=== PATIENT | female | born 1950 | race Caucasian/White ===

== ENCOUNTER 2018-06-22 08:29 | Emergency (ER) | payer MEDICARE, MEDICAID ==
[~2018-06-22] VITALS: Ht 185.4 cm; Wt 88.6 kg
[~2018-06-22 08:29] MED LIST: ALAVERT10 MG OR; AMLODIPINE5 MG PO; LISINOPRIL10 MG OR; LISINOPRIL20 MG PO; LORATADINE10 M1 PO; METOPROL TAR25 MG PO; MOTRIN800 MG PO
[2018-06-22] MEDS ORDERED: IBUPROFEN600 MG PO (09:25)
[2018-06-22 09:42] VITALS: BP 127/86
== END 2018-06-22 09:47 | disposition home or self-care (01) ==
LOC: ED 08:29
DX: S63.91XA Sprain of unspecified part of right wrist and hand, initial encounter (principal); W01.0XXA Fall on same level from slipping, tripping and stumbling without subsequent striking against object, initial encounter; Y93.01 Activity, walking, marching and hiking; Y92.009 Unspecified place in unspecified non-institutional (private) residence as the place of occurrence of the external cause

== ENCOUNTER 2019-01-14 08:22 | Emergency (ER) | payer MEDICARE, MEDICAID ==
[~2019-01-14] VITALS: Ht 185.4 cm; Wt 100.0 kg
[~2019-01-14 08:22] MED LIST changes: +IBUPROFEN600 MG PO
[2019-01-14 11:00] VITALS: BP 125/74
== END 2019-01-14 11:00 | disposition home or self-care (01) ==
LOC: ED 08:22
DX: S80.02XA Contusion of left knee, initial encounter (principal); S80.01XA Contusion of right knee, initial encounter; M25.562 Pain in left knee; M25.561 Pain in right knee; S80.212A Abrasion, left knee, initial encounter; S80.211A Abrasion, right knee, initial encounter; W18.30XA Fall on same level, unspecified, initial encounter; Y92.009 Unspecified place in unspecified non-institutional (private) residence as the place of occurrence of the external cause

== ENCOUNTER 2019-01-24 08:21 | Emergency (ER) | payer MEDICARE, MEDICAID ==
[~2019-01-24] VITALS: Ht 185.4 cm; Wt 86.0 kg
[~2019-01-24 08:21] MED LIST changes: +BACTRIM DS1 TAB PO; +CEPHALEXIN500 M1 PO
[2019-01-24 08:48] VITALS: BP 109/50
== END 2019-01-24 08:59 | disposition home or self-care (01) ==
LOC: ED 08:21
DX: S91.105D Unspecified open wound of left lesser toe(s) without damage to nail, subsequent encounter (principal)

== ENCOUNTER 2019-08-03 09:35 | Observation (INO) | payer MEDICARE, MEDICAID ==
[~2019-08-03] VITALS: Ht 182.9 cm; Wt 102.6 kg
[2019-08-03 11:08] LABS: HEMATOCRIT 42.2 % (37.0-47.0); HEMOGLOBIN 13.5 g/dl (12.0-16.0); IMMATURE GRANULOCYTES 0.5 % (0.0-5.0); MEAN CELL VOLUME 84.9 fL CALC (80.0-100.0); MEAN CORPUSCULAR HGB 27.2 pG CALC (26.0-32.0); NEUT# 9.9 thou/uL (2.00-7.15); RED BLOOD COUNT 4.97 mill/uL (4.20-5.60); RED CELL DISTRI WIDTH 13.7 % (11.5-15.5)
[2019-08-03 11:37] LABS: ALBUMIN 3.9 g/dL (3.2-5.0); BILIRUBIN, TOTAL 0.3 mg/dL (0.0-1.4); CREATININE 1.2 mg/dL (0.5-1.0); TOTAL PROTEIN 7.2 g/dL (6.3-8.2)
[2019-08-03 11:39] LABS: POTASSIUM 5.2 mmol/l (3.5-5.1)
[2019-08-03 12:05] LABS: URINE BILIRUBIN - DIPSTICK NEGATIVE (NEGATIVE); URINE BLOOD DIPSTICK NEGATIVE (NEGATIVE); URINE COLOR YELLOW; URINE GLUCOSE - DIPSTICK NEGATIVE (NEGATIVE); URINE KETONE NEGATIVE (NEGATIVE); URINE LEUK ESTERASE NEGATIVE (NEGATIVE); URINE NITRITE - DIPSTICK NEGATIVE (Negative); URINE PH 5.5 (4.5-8.0); URINE PROTEIN - DIPSTICK NEGATIVE (NEG-TRACE); URINE SPECIFIC GRAVITY 1.025; URINE UROBILINOGEN - DIPSTICK 0.2 E.U./dL (0.2)
[2019-08-03] MEDS ORDERED: NEOMYCIN500 MG PO (12:59)
[2019-08-03] MEDS ORDERED: CELEBREX200 M1 PO (12:59)
[2019-08-03 14:10] VITALS: BP 129/79
[2019-08-03 16:16] VITALS: BP 117/60
[2019-08-03 19:02] VITALS: BP 147/63
[2019-08-03 23:46] VITALS: BP 133/76
[2019-08-04 04:21] VITALS: BP 155/60
[2019-08-04 05:19] LABS: HEMATOCRIT 40.1 % (37.0-47.0); HEMOGLOBIN 12.7 g/dl (12.0-16.0); IMMATURE GRANULOCYTES 0.6 % (0.0-5.0); MEAN CELL VOLUME 84.8 fL CALC (80.0-100.0); MEAN CORPUSCULAR HGB 26.8 pG CALC (26.0-32.0); MEAN CORPUSCULAR HGB CONC 31.7 g/L CALC (32.0-36.0); NEUT# 5.91 thou/uL (2.00-7.15); RED BLOOD COUNT 4.73 mill/uL (4.20-5.60); RED CELL DISTRI WIDTH 13.8 % (11.5-15.5)
[2019-08-04 05:34] LABS: ANION GAP 13 (6-22 (CALC)); BUN 20 mg/dL (8-23); BUN/CREATININE RATIO 24 (12-20 (CALC)); CARBON DIOXIDE 21 mmol/l (22-30); CHLORIDE 109 mmol/l (95-108); CREATININE 0.8 mg/dL (0.5-1.0); GFR > 60 ML/MIN (>=60 (CALC)); GFR FOR AFR.AMER. > 60 ML/MIN (>=60 (CALC)); POTASSIUM 4.5 mmol/l (3.5-5.1); SODIUM 138 mmol/l (137-146)
[2019-08-04 08:43] VITALS: BP 138/75
[2019-08-04 11:52] VITALS: BP 126/68
== END 2019-08-04 15:42 | disposition home health service (06) ==
LOC: ED 09:35 → ED-I 12:06 → ED 12:18 → MS2 12:19
PROVIDERS: Nurse Practitioner Family; ADMIT Internal Medicine; ATTEND Internal Medicine
DX: E86.0 Dehydration (principal); N17.9 Acute kidney failure, unspecified; M62.81 Muscle weakness (generalized); S80.01XA Contusion of right knee, initial encounter; I49.3 Ventricular premature depolarization; I10 Essential (primary) hypertension; F72 Severe intellectual disabilities; M19.90 Unspecified osteoarthritis, unspecified site; E86.1 Hypovolemia; H02.102 Unspecified ectropion of right lower eyelid; H02.105 Unspecified ectropion of left lower eyelid; W01.0XXA Fall on same level from slipping, tripping and stumbling without subsequent striking against object, initial encounter; Z91.81 History of falling
CPT/HCPCS: G0378; J1650

== ENCOUNTER 2019-09-22 08:22 | Inpatient (IN) | payer MEDICARE, MEDICAID ==
[~2019-09-22] VITALS: Ht 182.9 cm; Wt 104.8 kg
[~2019-09-22 08:22] MED LIST changes: -AMLODIPINE5 MG PO; +CELEBREX100 M1 PO; +LISINOPRIL10 MG PO; -LISINOPRIL20 MG PO; +NEOMYCIN500 MG PO; +NORVASC5 M1 PO
--- NOTE | 2019-09-22 08:36 | NUR ---
PATIENT TO ROOM VIA EMS. ALERT, SPLINT TO RIGHT LOWER EXTREMITY. EMS GAVE PATIENT 50 MCG OF FENTANLY IV FOR PAIN PRIOR TO ARRIVAL. AT BEDSIDE.
[2019-09-22] MEDS ORDERED: IMIPRAMINE HCL50 MG PO (09:07)
--- NOTE | 2019-09-22 09:07 | NUR ---
PT TO CT AT THIS TIME IN STABLE CONDITION
[2019-09-22] MEDS ORDERED: CYMBALTA30 MG PO (09:08)
[2019-09-22] MEDS ORDERED: KETOCONAZOLE2 % EX (09:08)
[2019-09-22 09:27] LABS: HEMATOCRIT 44.1 % (37.0-47.0); HEMOGLOBIN 13.8 g/dl (12.0-16.0); IMMATURE GRANULOCYTES 0.7 % (0.0-5.0); MEAN CELL VOLUME 86.1 fL CALC (80.0-100.0); MEAN CORPUSCULAR HGB CONC 31.3 g/L CALC (32.0-36.0); NEUT# 7.26 thou/uL (2.00-7.15); RED BLOOD COUNT 5.12 mill/uL (4.20-5.60); RED CELL DISTRI WIDTH 13.5 % (11.5-15.5)
[2019-09-22 09:36] LABS: BUN 21 mg/dL (8-23); BUN/CREATININE RATIO 21 (12-20 (CALC)); CARBON DIOXIDE 23 mmol/l (22-30); CHLORIDE 106 mmol/l (95-108); GFR 55 ML/MIN (>=60 (CALC)); GFR FOR AFR.AMER. > 60 ML/MIN (>=60 (CALC)); SODIUM 139 mmol/l (137-146)
[2019-09-22 09:39] LABS: ANION GAP 15 (6-22 (CALC)); POTASSIUM 4.6 mmol/l (3.5-5.1)
--- NOTE | 2019-09-22 10:20 | NUR ---
DOUBLE J SPLINT APPLIED AT THIS TIME PER DR BENDER ORDERS; PT TOLERATED WELL; CAREGIVERS AT BEDSIDE ADVISED OF CONTINUED WAIT TIME; WILL CONTINUE TO MONITOR
--- NOTE | 2019-09-22 11:20 | NUR ---
PT RESTING ON STRETCHER; RLE ELEVATED; SPLINT IN PLACE; CAREGIVERS AT BEDSIDE; ADVISED OF POC AND CONTINUED WAIT TIME; WILL CONTINUE TO MONITOR
--- NOTE | 2019-09-22 12:07 | NUR ---
Admission Note Report Given to: REILLY RILEY Transported by: Wheelchair X Stretcher Transported with: X Nurse Transporter X Patent IV X O2 X Game Designer/Creative Director Location: ICU X [facility]
[2019-09-22 12:15] VITALS: BP 140/73
--- NOTE | 2019-09-22 13:00 | NUR ---
PT ADMITTED FROM ER. PT ABLE TO MAKE SOME NEEDS KNOWN. BED IN LOWEST POSITION CALL LIGHT WITHIN EASY REACH. BED ALARM ON. PT ORIENTED TO ROOM, CALL LIGHT AND TV REMOTE. SCALEMAKER WILL CONTINUE TO MONITOR
[2019-09-22 14:50] VITALS: BP 153/66
--- NOTE | 2019-09-22 16:00 | NUR ---
PAIN MEDICATION ADMINISTERED FOR C/O PAIN. LINING CLEANER WILL CONTINUE TO MONITOR
--- NOTE | 2019-09-22 16:55 | NUR ---
I SPOKE WITH DR. TUBBS @[id number] AND HE VERIFIED THT HE KNEW ABOUT THE CONSULTATION ORDERED FOR THIS PT AND WOULD SEE HER TOMORROW. HE ALSO STATED THAT HE WOULD SPEAK WITH DR. ARTEAGA TOMORROW REGARDING THE PT AND WOULD DO THE SURGERY IN OUT PATIENT. #[phone]
[2019-09-22 18:28] VITALS: BP 138/52
--- NOTE | 2019-09-22 20:30 | NUR ---
PT RESTING IN BED, NO SIGNS OF DISTRESS NOTED, RESP EVEN AND UNLABORED. DISCUSSED POC, PT VERBALIZED UNDERSTANDING. PRODUCTION SHIFT SUPERVISOR AT BEDSIDE, ZACH CARE COMPLETED, NOTED REDNESS TO ABD FOLDS, BABY POWDER APPLIED, PURE WICK PLACED. NEW LINENS AND GOWN PROVIDED. PT TOLERATED WELL. SPLINT DRESSING TO RLE CDI, CAPILLARY REFILL TO GREAT TOE BRISK, SKIN WARM DRY, PT VOICES NO COMPLAINTS. ELEVATED RLE ON BLANKETS. ASSESSMENT COMPLETED. CALL LIGHT IN REACH, BED ALARM FOR SAFETY. CONTINUE TO MONITOR.
[2019-09-22 23:30] VITALS: BP 116/62
--- NOTE | 2019-09-23 | NUR ---
PT RESTING IN BED, NO SIGNS OF DISTRESS NOTED, RESP EVEN AND UNLABORED. PT VOICES NO NEEDS OR COMPLAINTS AT THIS TIME. CALL LIGHT IN REACH, BED ALARM FOR SAFETY. CONTINUE TO MONITOR.
[2019-09-23 03:30] VITALS: BP 110/79
--- NOTE | 2019-09-23 03:35 | NUR ---
PT RESTING IN BED VITALS OBTAINED, PT VOICES NO NEEDS OR COMPLAINTS AT THIS TIME. CALL LIGHT IN REACH,CONTINUE TO MONITOR.
[2019-09-23 05:34] LABS: ANION GAP 11 (6-22 (CALC)); BUN 18 mg/dL (8-23); BUN/CREATININE RATIO 21 (12-20 (CALC)); CARBON DIOXIDE 22 mmol/l (22-30); CHLORIDE 108 mmol/l (95-108); CREATININE 0.9 mg/dL (0.5-1.0); GFR > 60 ML/MIN (>=60 (CALC)); GFR FOR AFR.AMER. > 60 ML/MIN (>=60 (CALC)); MAGNESIUM 1.9 mg/dL (1.6-2.3); POTASSIUM 4.4 mmol/l (3.5-5.1); SODIUM 136 mmol/l (137-146)
[2019-09-23 05:42] LABS: IMMATURE GRANULOCYTES 0.4 % (0.0-5.0); MEAN CELL VOLUME 86.9 fL CALC (80.0-100.0); MEAN CORPUSCULAR HGB 27.1 pG CALC (26.0-32.0); MEAN CORPUSCULAR HGB CONC 31.1 g/L CALC (32.0-36.0); NEUT# 5.1 thou/uL (2.00-7.15); RED BLOOD COUNT 4.21 mill/uL (4.20-5.60); RED CELL DISTRI WIDTH 13.8 % (11.5-15.5)
[2019-09-23 05:48] LABS: HEMATOCRIT 36.6 % (37.0-47.0); HEMOGLOBIN 11.4 g/dl (12.0-16.0)
--- NOTE | 2019-09-23 07:30 | NUR ---
REPORT RECEIVED FROM DANYELL SERRA. PT SITTING UPRIGHT IN BED. REPORTS MODERATE PAIN TO RIGHT LEG. PAIN MEDICATION REVIEWED. FALL PRECAUTIONS REINFORCED. PT ALERT AND ORIENTED. INAPPROPRAITE AND CHILDLIKE RESPONSES AT TIMES. PLAN OF CARE REVIEWED. CALL LIGHT REVIEWED ADN IN REACH. RIGHT LEG ELEVATED ON PILLOW, NEGRITA WRAP DRESSING CDI. SENSATION TO RIGHT FOOT INTACT. WARM TO TOUCH. PUREWICK IN PLACE. O2 @ 2L VIA NC. I.S. PROVIDED TO PT, INSTRUCTED ON USE AND INDICATION. 1000 ML INCENTIVE VOLUME ACHIEVED, GOAL OF 1500 ML SET. BED ALARM SET FOR SAFETY.
--- NOTE | 2019-09-23 07:35 | NUR ---
DR. FRIEDMAN IN TO SEE PT AT THIS TIME. PLAN IS NON-SURGICAL. MAY BE DISCHARGED FROM HIS STANDPOINT.
[2019-09-23 07:55] VITALS: BP 129/66
--- NOTE | 2019-09-23 09:49 | NUR ---
UA COLLECTED AT THIS TIME PER ORDER.
[2019-09-23 10:07] LABS: URINE BILIRUBIN - DIPSTICK NEGATIVE (NEGATIVE); URINE BLOOD DIPSTICK NEGATIVE (NEGATIVE); URINE COLOR YELLOW; URINE GLUCOSE - DIPSTICK NEGATIVE (NEGATIVE); URINE KETONE NEGATIVE (NEGATIVE); URINE LEUK ESTERASE TRACE (NEGATIVE); URINE PROTEIN - DIPSTICK NEGATIVE (NEG-TRACE); URINE SPECIFIC GRAVITY <=1.005; URINE UROBILINOGEN - DIPSTICK 0.2 E.U./dL (0.2)
[2019-09-23 10:08] LABS: URINE BACTERIA MODERATE hpf; URINE EPITHELIAL CELLS FEW EPI/hpf (0-FEW); URINE NITRITE - DIPSTICK POSITIVE (Negative)
--- NOTE | 2019-09-23 11:30 | NUR ---
DR. ARTEAGA IN TO SEE PT. PLAN OF CARE UPDATED.
[2019-09-23 11:44] VITALS: BP 125/51
[2019-09-23 15:09] VITALS: BP 139/66
--- NOTE | 2019-09-23 16:07 | NUR ---
PT SLEEPING AT THIS TIME.
[2019-09-23 19:33] VITALS: BP 136/77
--- NOTE | 2019-09-23 20:10 | NUR ---
PT MEDICATED AND ASSESSMENT COMPLETED AT THIS TIME. CAREGIVER IN TO VISIT WHILE I WAS IN THE ROOM. PT MEDIATED FOR PAIN TO RIGHT ANKLE. DRESSING CDI, PULSE PALPATED, APPROPRIATE TIGHTNESS OF DRESSING MONITORED, ROM TO TOES CHECKED.
--- NOTE | 2019-09-23 23:40 | NUR ---
PT AWAKE WATCHING TV. SNACK PROVIDED. PT DENIES PAIN AT THIS TIME. NO S/O DISTRESS. PT REORIENTED TO LIGHTS, BED, TV AND CALL LIGHT. ASSISTED PT FINDING A SHOW ON TV THAT SHE LIKED.
[2019-09-23 23:41] VITALS: BP 117/68
[2019-09-24 03:08] VITALS: BP 129/70
--- NOTE | 2019-09-24 03:46 | NUR ---
PT SLEEPING, NO S/O DISTRESS NOTED. TV IS ON LOW AND LIGHTS OUT. BED ALARM ON FOR SAFETY AND CALL LIGHT W/IN REACH.
[2019-09-24 06:07] LABS: HEMATOCRIT 36.1 % (37.0-47.0); HEMOGLOBIN 11.1 g/dl (12.0-16.0); MEAN CELL VOLUME 87.2 fL CALC (80.0-100.0); MEAN CORPUSCULAR HGB 26.8 pG CALC (26.0-32.0); MEAN CORPUSCULAR HGB CONC 30.7 g/L CALC (32.0-36.0); RED BLOOD COUNT 4.14 mill/uL (4.20-5.60); RED CELL DISTRI WIDTH 13.9 % (11.5-15.5)
[2019-09-24 06:34] LABS: ANION GAP 11 (6-22 (CALC)); BUN 14 mg/dL (8-23); BUN/CREATININE RATIO 22 (12-20 (CALC)); CARBON DIOXIDE 22 mmol/l (22-30); CHLORIDE 108 mmol/l (95-108); CREATININE 0.6 mg/dL (0.5-1.0); GFR > 60 ML/MIN (>=60 (CALC)); GFR FOR AFR.AMER. > 60 ML/MIN (>=60 (CALC)); POTASSIUM 4.2 mmol/l (3.5-5.1); SODIUM 137 mmol/l (137-146)
--- NOTE | 2019-09-24 08:00 | NUR ---
PT RESTING IN BED, PT ALERT AND ORIENTED X2. DISCUSSED POC, PT VOICES NO NEEDS OR COMPLAINTS AT THIS TIME. ICE PACKS APPLIED TO RLE, ELEVATED ON PILLOWS. RESP EVEN AND UNLABORED. PURE WICK IN PLACE, ASSESSMENT COMPLETED. CALL LIGHT IN REACH,CONTINUE TO MONITOR.
[2019-09-24 08:02] VITALS: BP 150/62
--- NOTE | 2019-09-24 12:04 | NUR ---
CAREGIVER FROM NURSING HOME AT BEDSIDE, DISCUSSED POC, PT EATING LUNCH, NO SIGNS OF DISTRESS NOTED,RESP EVEN AND UNLABORED. CALL LIGHT IN REACH,CONTINUE TO MONITOR.
--- NOTE | 2019-09-24 12:25 | NUR ---
AND RESEARCH TECHNICIAN AT BEDSIDE TO DISCUSS POC.
--- NOTE | 2019-09-24 13:30 | NUR ---
PT RESTING IN BED, MEDICATED FOR PAIN. IV ROCEPHIN INITATED. CALL LIGHT IN REACH,CONTINUE TO MONITOR.
[2019-09-24 16:11] VITALS: BP 132/60
--- NOTE | 2019-09-24 16:12 | NUR ---
PT RESTING IN BED, NO SIGNS OF DISTRESS NOTED, RESP EVEN AND UNLABORED. PT VOICES NO NEEDS OR COMPLAINTS AT THIS TIME. CALL LIGHT IN REACH,CONTINUE TO MONITOR. CALL LIGHT IN REACH,CONTINUE TO MONITOR.
--- NOTE | 2019-09-24 19:30 | NUR ---
ASSESMENT COMPLETED, PLAN OF CARE REVIEWED. DENIES NEEDS AT THIS TIME, CALL FARRELL WITHIN REACH AGREES TO CALL PRN.
[2019-09-24 23:00] VITALS: BP 146/80
--- NOTE | 2019-09-25 00:30 | NUR ---
PT APPEARS TO BE SLEEPING COMFORTABLY, RESP REG/UNLABORED, NO APPARENT DISTRESS. CALL FARRELL REMAINS WITHIN REACH.
--- NOTE | 2019-09-25 01:02 | NUR ---
PER TELE PTS HR DROPPING TO SB 40'S WITH INCREASE IN PVC'S, NON-SUSTAINED. RANGE IS SB 40's TO SR 60's. PT AWAKE, WATCHING TV. DENIES ANY SYMPTOMOLOGY. PT ASYMPTOMATIC, WILL CON'T TO MONITOR. SPOKE WITH RUSS GROVER, WHO IS MONITORING KHADAR.
[2019-09-25 03:07] VITALS: BP 145/76
--- NOTE | 2019-09-25 04:48 | NUR ---
PT RESTING COMFORTABLY, WATCHING TV. DENIES NEEDS AT THIS TIME, CALL FARRELL REMAINS WITHIN REACH, AGREES TO CALL PRN.
--- NOTE | 2019-09-25 08:00 | NUR ---
Head to to assessment completed. Lung sound clear. Last BM 09/23/19. Patient able to make needs known. External cath applied and drain clear yellow urine. No c/o pain nor discomfort. Abd area soft and nontender. Skin intact.
[2019-09-25 10:30] VITALS: BP 139/82
--- NOTE | 2019-09-25 10:39 | NUR ---
Call from ER patient HR 150-170. Nurse/tech check VS BP 122/58 and HR 57-68. Patient was resting in bed in supine postion.
[2019-09-25 16:00] VITALS: BP 158/66
[2019-09-25 18:33] VITALS: BP 146/81
--- NOTE | 2019-09-25 19:30 | NUR ---
PHYSICAL ASSESMENT COMPLETE, PLAN OF CARE REVIEWED. RLE OA SPLIN INTACT, SKIN WARM AND DRY, BRISK CAP REFILL, POSITVE TACTILE SENSATION. PT RESTING COMFORTABLY IN BED, CALL FARRELL WITHIN REACH AGREES TO CALL PRN.
[2019-09-25 23:43] VITALS: BP 137/72
--- NOTE | 2019-09-26 | NUR ---
PT RESTING COMFORTABLY, WATCHING TV. RLE REMAINS ELEVATED WITH OA SPLINT C/D/I. RLE CIRCULATION, MOVEMENT, AND SENSATION INTACT AND NORMAL. CALL FARRELL WITHIN REACH, AGREES TO CALL PRN.
[2019-09-26 03:41] VITALS: BP 138/60
--- NOTE | 2019-09-26 04:05 | NUR ---
V/S ASSESSED AND PT PUREWICK CHANGED, ZACH-CARE PROVIDED. PT TOLERATED WELL AND WAS ABLE TO ASSIST IN TURNING. PT RLE ELEVATED ON PILLOWS X2 AND HEEL PROTECTOR TO LEFT FOOT. PUREWICK SUCTION SET TO LOW CONTINUOUS SUCTION.
--- NOTE | 2019-09-26 04:55 | NUR ---
RLE ELEVATED, AO SPLINT C/D/I, RLE: CIRCULATION, MOVEMENT, SENSATION INTACT/WNL.
[2019-09-26 05:19] LABS: HEMATOCRIT 37.6 % (37.0-47.0); HEMOGLOBIN 12.2 g/dl (12.0-16.0); IMMATURE GRANULOCYTES 0.4 % (0.0-5.0); MEAN CELL VOLUME 84.1 fL CALC (80.0-100.0); MEAN CORPUSCULAR HGB 27.3 pG CALC (26.0-32.0); MEAN CORPUSCULAR HGB CONC 32.4 g/L CALC (32.0-36.0); NEUT# 4.64 thou/uL (2.00-7.15); RED BLOOD COUNT 4.47 mill/uL (4.20-5.60); RED CELL DISTRI WIDTH 13.6 % (11.5-15.5)
[2019-09-26 05:46] LABS: ALBUMIN 3.4 g/dL (3.2-5.0); ALKALINE PHOSPHATASE 89 u/l (38-126); ANION GAP 12 (6-22 (CALC)); BILIRUBIN, TOTAL 0.4 mg/dL (0.0-1.4); BUN 18 mg/dL (8-23); BUN/CREATININE RATIO 26 (12-20 (CALC)); CARBON DIOXIDE 25 mmol/l (22-30); CHLORIDE 106 mmol/l (95-108); CREATININE 0.7 mg/dL (0.5-1.0); GFR > 60 ML/MIN (>=60 (CALC)); GFR FOR AFR.AMER. > 60 ML/MIN (>=60 (CALC)); POTASSIUM 4.1 mmol/l (3.5-5.1); SGOT/AST 33 u/l (9-36); SODIUM 139 mmol/l (137-146); TOTAL PROTEIN 6.4 g/dL (6.3-8.2)
--- NOTE | 2019-09-26 07:00 | NUR ---
REPORT RECEIVED FROM REILLY SNOW;PT RESTING IN SEMI FOWLERS POSITION;INTRODUCED SELF TO PT AND POC DISCUSSED;RESPIRATIONS EVEN AND UNLABORED ON O2 @ 2L VIA NC;TELE MONITORING IN PLACE;PT DENIES ANY CURRENT PAIN OR NEEDS;ENCOURAGED TO CALL FOR ASSISTANCE IF NEEDED;FALL PRECAUTIONS IN PLACE WITH BED IN THE LOWEST POSITION AND CALL LIGHT IN REACH;WILL CONTINUE TO MONITOR
--- NOTE | 2019-09-26 08:20 | NUR ---
PT RESTING IN SEMI FOWLERS POSITION,A&O X3 WITH MENTAL DELAY NOTED;VS OBTAINED AND ASSESSMENT COMPLETED, CURRENT HR 122 SCHEDULED LOPRESSOR TO BE ADMINISTERED;PT REPORTS GENERALIZED PAIN RATING 8/10 ON THE PAIN SCALE AND REQUESTS PAIN MEDICATION,PT TO BE MEDICATED WITH PRN TYLENOL 650MG PO;RESPIRATIONS EVEN AND UNLABORED ON O2 @ 2L VIA NC,I.S AT BEDSIDE AND PT INSTRUCTED TO USE 10X PER HOUR;ABDOMEN DISTENDED/SOFT ON PALPATION AND ACTIVE IN ALL 4 QUADRANTS;PUREWICK CATHETER PATENT;WEAK PEDAL PULSES;SPLINT NOTED TO RIGHT ANKLE AND ELEVATED ON A PILLOW;TELE MONITORING IN PLACE;EMS #20G TO LEFT HAND PATENT;PT DENIES ANY ADDITIONAL NEEDS AT THIS TIME AND IS ENCOURAGED TO CALL FOR ASSISTANCE IF NEEDED;FALL PRECAUTIONS IN PLACE WITH CALL LIGHT IN REACH;WILL CONTINUE TO MONITOR
[2019-09-26 08:22] VITALS: BP 144/85
--- NOTE | 2019-09-26 09:26 | NUR ---
AT BEDSIDE DISCUSSING POC INCLUDING PLANS TO D/C TO REHAB,PT VERBALIZES UNDERSTANDING.
--- NOTE | 2019-09-26 09:47 | NUR ---
XRAY AT BEDSIDE
--- NOTE | 2019-09-26 09:59 | NUR ---
RT MAC AT BEDSIDE OBTAINING EKG
[2019-09-26 11:00] VITALS: BP 142/81
--- NOTE | 2019-09-26 13:15 | NUR ---
PT RESTING IN SEMI FOWLERS POSITION;RESPIRATIONS EVEN AND UNLABORED ON O2 @ 2L VIA NC;PT DENIES ANY CURRENT PAIN OR NEEDS;TELE MONITORING IN PLACE;NEW IV SITE STARTED ON 1ST ATTEMPT TO RIGHT HAND BY THIS WRITTER AND EMS #20G TO LEFT HAND REMOVED WITH CATHETER INTACT DUE TO EXPIRATION DATE;PT MEDICATED WITH MOM AND PRUNE JUICE TO ASSIST IN BOWEL CARE;PT DENIES ANY ADDITIONAL NEEDS AND IS ENCOURAGED TO CALL FOR ASSISTANCE IF NEEDED;FALL PRECAUTIONS IN PLACE WITH CALL LIGHT IN REACH;WILL CONTINUE TO MONITOR
--- NOTE | 2019-09-26 15:20 | NUR ---
PT APPEARS TO BE SLEEPING IN SEMI FOWLERS POSITION;NO S/S OF DISTRESS NOTED;RESPIRATIONS EVEN AND UNLABORED ON O2 @ 2L VIA NC;PUREWICK PATENT;IV FLUIDS INFUSING WITH EASE PER ORDER;TELE MONITORING IN PLACE;ASSESSMENT REMAINS UNCHANGED AT THIS TIME;FALL PRECAUTIONS IN PLACE WITH BED IN THE LOWEST POSITION AND CALL LIGHT IN REACH;WILL CONTINUE TO MONITOR
[2019-09-26 16:05] VITALS: BP 134/64
--- NOTE | 2019-09-26 18:17 | NUR ---
PT MEDICATED WITH PRN TYLENOL 650MG PO FOR ABDOMINAL PAIN RATING 10/10 ON THE PAIN SCALE,WILL MONITOR FOR EFFECTIVENESS
[2019-09-26 18:45] VITALS: BP 134/74
--- NOTE | 2019-09-26 20:12 | NUR ---
REQUESTS WERE MADE BY LAB[employer]ER [employer] TO CONTACT PHYSICIAN REGARDING DC OF TELEMETRY ORDERS, PHYSICIAN NOTIFIED AND ORDERS WERE RECEIVED FOR PT TO REMAIN ON ROGUER DUE TO RECENT EVENTS.
--- NOTE | 2019-09-26 20:23 | NUR ---
PT MEDICATED AND ASSESSMENT COMPLETED AT THIS TIME. ASSISTED PT POSITIONING IN BED FOR COMFORT. PUREWICK IN PLACE TO LOW CONTINUOUS SUCTION. PT DENIES ANY OTHER NEEDS, WANTED LIGHTS AND TV OFF. RIGHT FOOT ELEVATED ON PILLOWS AND CIRCULATION/ROM ARE APPEAR INTACT.
[2019-09-26 23:20] VITALS: BP 147/79
--- NOTE | 2019-09-27 00:38 | NUR ---
PT SLEEPING W/LIGHTS AND TV OUT. NO S/O DISTRESS, CALL LIGHT W/IN REACH. BED ALARM ON.
--- NOTE | 2019-09-27 02:23 | NUR ---
PT AWAKE, ASSISTED W/PO FLUIDS, DENIES ANY OTHER NEEDS. REMINDED OF CALL LIGHT. NO S/O DISTRESS NOTED.
[2019-09-27 03:03] VITALS: BP 148/72
--- NOTE | 2019-09-27 04:30 | NUR ---
PT SLEEPING NO S/O DISTRESS. PUREWICK HAS BEEN CHANGED AND IS SET TO LOW CONTINUOUS SUCTION.
--- NOTE | 2019-09-27 07:00 | NUR ---
REPORT RECEIVED FROM REILLY MYRICK;PT APPEARS TO BE SLEEPING IN SEMI FOWLERS POSITION;NO S/S OF DISTRESS NOTED;RESPIRATIONS EVEN AND UNLABORED ON O2 @ 2L VIA NC;TELE MONITORING IN PLACE;IV FLUIDS INFUSING WITH EASE TO RIGHT HAND;ALL SAFETY PRECAUTIONS NOTED WITH BED IN THE LOWEST POSITION AND CALL LIGHT IN REACH;WILL CONTINUE TO MONITOR
[2019-09-27 09:19] VITALS: BP 109/56
--- NOTE | 2019-09-27 09:20 | NUR ---
PT RESTING IN SEMI FOWLERS POSITION WATCHING TV WITH CAREGIVER AT BEDSIDE,A&O X3;VS OBTAINED AND ASSESSMENT COMPLETED;PT DENIES ANY CURRENT PAIN OR DISCOMFORTS,PAIN SCALE AND REPORTING EDUCATED;RESPIRATIONS EVEN AND UNLABORED,SHALLOW ON O2 @ 2L VIA NC;ABDOMEN SOFT ON PALPATION AND ACTIVE IN ALL 4 QUADRANTS;WEAK PEDAL PULSES;SPLINT TO RLE NOTED AND LEG ELEVATED ON A PILLOW;CAP REFILL LESS THAN 3 SECONDS;PUREWICK CATHETER IN PLACE;#22G TO RIGHT HAND INFUSING NS @ 20ML/HR,SITE APPEARS HEALTHY;TELE MONITORING IN PLACE;PT DENIES ANY ADDITIONAL NEEDS AND IS ENCOURAGED TO CALL FOR ASSISTANCE IF NEEDED;FALL PRECAUTIONS IN PLACE WITH CALL LIGHT IN REACH;WILL CONTINUE TO MONITOR
--- NOTE | 2019-09-27 11:20 | NUR ---
AT BEDSIDE DISCUSSING POC INCLUDING PLANS TO D/C TO REHAB, PT VERBALIZES UNDERSTANDING.
[2019-09-27] MEDS ORDERED: KEFLEX500 MG PO (11:22)
[2019-09-27] MEDS ORDERED: ASPIRIN ADULT325 MG PO (11:22)
[2019-09-27 11:29] VITALS: BP 131/56
--- NOTE | 2019-09-27 11:30 | NUR ---
PHYSICAL THERAPY AT BEDSIDE
--- NOTE | 2019-09-27 11:30 | NUR ---
PT RESTING IN SEMI FOWLERS POSITION WATCHING TV;RESPIRATIONS EVEN AND UNLABORED ON O2 @ 2L VIA NC;PT DENIES ANY CURRENT PAIN OR NEEDS;TELE MONITORING IN PLACE;IV FLUIDS INFUSING TO RIGHT HAND WITH EASE AND TUBING CHANGED AT THIS TIME;ALL SAFETY PRECAUTIONS IN PLACE;PT VERBALIZES UNDERSTANDING OF PLAN TO D/C TO REHAB,AWAITING CASE MANAGEMENT FOR PLACEMENT;PT ENCOURAGED TO CALL FOR ASSISTANCE IF NEEDED;CALL LIGHT IN REACH;WILL CONTINUE TO MONITOR
[2019-09-27 15:24] VITALS: BP 143/64
--- NOTE | 2019-09-27 15:30 | NUR ---
PT RESTING IN SEMI FOWLERS POSITION;RESPIRATIONS EVEN AND UNLABORED ON O2 @ 2L VIA NC;PT DENIES ANY CURRENT PAIN OR NEEDS;TELE MONITORING IN PLACE;IV SITE INFUSING NS TO RIGHT HAND PER ORDER;RLE REMAINS ELEVATED ON A PILLOW;PT DENIES ANY ADDITIONAL NEEDS AT THIS TIME AND IS ENCOURAGED TO CALL FOR ASSISTANCE IF NEEDED;FALL PRECAUTIONS IN PLACE WITH CALL LIGHT IN REACH;WILL CONTINUE TO MONITOR
--- NOTE | 2019-09-27 16:55 | NUR ---
IV SITE REMOVED WITH CATHETER INTACT;PT TO BE TRANSPORTED TO [facility] BY CAREGIVER;WHEELCHAIR TO BE PROVIDED FOR D/C HOME.
--- NOTE | 2019-09-27 17:13 | NUR ---
Discharge instructions given. Patient verbalizes understanding of same. Discharged in stable condition via Wheel[facility] to [facility] with . All belongings sent with pt. PT TRANSPORTED TO [facility] IN STABLE CONDITION VIA WHEELCHAIR ACCOMPANIED BY WILDER MAGANA;PT TO BE TRANSPORTED TO [facility] BY CAREGIVER.
--- NOTE | 2019-09-27 17:25 | NUR ---
REPORT CALLED TO REILLY VIEIRA AT [facility].
== END 2019-09-27 18:00 | DRG 563 ==
LOC: ED 08:22 → ED-I 10:08 → ED 10:22 → MS2 10:23
PROVIDERS: Family Medicine; Nurse Practitioner Family; ADMIT Internal Medicine; ATTEND Internal Medicine
PROC: 2W3QX1Z Immobilization of Right Lower Leg using Splint (ICD-10-PCS; principal; 2019-09-22)
DX: S82.841A Displaced bimalleolar fracture of right lower leg, initial encounter for closed fracture (principal); N17.9 Acute kidney failure, unspecified; N39.0 Urinary tract infection, site not specified; F72 Severe intellectual disabilities; S82.831A Other fracture of upper and lower end of right fibula, initial encounter for closed fracture; I12.9 Hypertensive chronic kidney disease with stage 1 through stage 4 chronic kidney disease, or unspecified chronic kidney disease; N18.2 Chronic kidney disease, stage 2 (mild); I48.0 Paroxysmal atrial fibrillation; M62.81 Muscle weakness (generalized); H02.102 Unspecified ectropion of right lower eyelid; H02.105 Unspecified ectropion of left lower eyelid; I49.3 Ventricular premature depolarization; B96.20 Unspecified Escherichia coli [E. coli] as the cause of diseases classified elsewhere; W10.9XXA Fall (on) (from) unspecified stairs and steps, initial encounter; Y92.009 Unspecified place in unspecified non-institutional (private) residence as the place of occurrence of the external cause; Y99.9 Unspecified external cause status; Z91.81 History of falling
CPT/HCPCS: G0378; J1650

== ENCOUNTER 2019-11-10 11:07 | Inpatient (IN) | payer MEDICARE, MEDICAID ==
[~2019-11-10] VITALS: Ht 182.9 cm; Wt 104.3 kg
[~2019-11-10 11:07] MED LIST changes: +ASPIRIN ADULT325 MG PO; +CYMBALTA30 MG PO; +IMIPRAMINE HCL50 MG PO; +KEFLEX500 MG PO; +KETOCONAZOLE2 % EX
--- NOTE | 2019-11-10 11:20 | NUR ---
PT ARRVIED TO [facility] VIA WHEELCHAIR. PT ORIENTED TO PERSON AND PLACE. ORIENTED PT TO ROOM AND TO CURRENT TIME (MONTH). NO DISTRESS NOTED. PT DENIES ANY PAIN AT THIS TIME. PT POOR HISTORIAN, MEDICAL INFORMATION OBTAINED FROM CARE HOME RECORDS. PER PT SHE HAS NOT REC THE FLU VACCINE AND WOULD LIKE TO REC IT DURING HER STAY HERE. PT UNSURE OF WHEN HER LAST BM WAS. NO OTHER NEEDS AT THIS TIME. BED ALARM PLACED FOR PTS SAFETY. NWB TO RT FOOT WAS EXPLAINED TO PT. ASSESSMENT COMPLETED. CALL LIGHT IN REACH. CONTINUE TO MONITOR.
[2019-11-10 11:28] VITALS: BP 152/79
--- NOTE | 2019-11-10 12:20 | NUR ---
DR TUBBS AT BEDSIDE DISCUSSING POC.
[2019-11-10 13:02] LABS: HEMATOCRIT 39.8 % (37.0-47.0); HEMOGLOBIN 12.6 g/dl (12.0-16.0); IMMATURE GRANULOCYTES 0.7 % (0.0-5.0); MEAN CELL VOLUME 83.4 fL CALC (80.0-100.0); MEAN CORPUSCULAR HGB 26.4 pG CALC (26.0-32.0); MEAN CORPUSCULAR HGB CONC 31.7 g/dL CAL (32.0-36.0); NEUT# 7.52 thou/uL (2.00-7.15); RED BLOOD COUNT 4.77 mill/uL (4.20-5.60)
[2019-11-10 13:20] LABS: BILIRUBIN, TOTAL 0.3 mg/dL (0.0-1.4); CREATININE 1.2 mg/dL (0.5-1.0); POTASSIUM 4.8 mmol/l (3.5-5.1); TOTAL PROTEIN 7.1 g/dL (6.3-8.2)
[2019-11-10] MEDS ORDERED: NEO/POLY/DEX0.13 OU (13:49)
--- NOTE | 2019-11-10 14:04 | NUR ---
PT TAKEN TO CT SCAN VIA STRETCHER ACCOMPANIED BY YAMILETH GROVER
--- NOTE | 2019-11-10 14:16 | NUR ---
PT ARRIVED BACK TO [facility] FROM CT
--- NOTE | 2019-11-10 14:51 | NUR ---
PHONE CALL RETURNED TO LISBETH PTS POA AND EMERGENCY CONTACT. EXPLAINED TO LISBETH WHAT PROCEDURE PT WOULD BE REC TOMORROW AND TRIED TO OBTAIN VERBAL CONSENT DUE TO PTS COGNITIVE CAPACITIES, PER LISBETH PT IS "A CONSENTING ADULT AND SHE IS ABLE TO CONSENT AND SIGN HER OWN PAPERWORK" . KATHY KELLEY NOTIFIED.
[2019-11-10 15:24] VITALS: BP 135/81
--- NOTE | 2019-11-10 15:58 | NUR ---
SPOKE TO DR TUBBS AND EXPLAINED THAT JORGE STATED PT WAS ABLE TO SIGN HER OWN PAPERWORK. VERBALIZED UNDERSTANDING AND GAVE ME PROCEDURE ORDERS. REPEATED BACK ORDERS AND WILL CONFIRM WITH HIM TOMORROW MORNING.
--- NOTE | 2019-11-10 16:34 | NUR ---
PAIN SHOWING FACIAL CHARACTERISTICS OF PAIN. LORTAB GIVEN. WILL REASSESS AND CONTINUE TO MONITOR
[2019-11-10 17:34] LABS: URINE BILIRUBIN - DIPSTICK NEGATIVE (NEGATIVE); URINE BLOOD DIPSTICK MODERATE (NEGATIVE); URINE COLOR YELLOW; URINE GLUCOSE - DIPSTICK NEGATIVE (NEGATIVE); URINE KETONE NEGATIVE (NEGATIVE); URINE PH 5.5 (4.5-8.0); URINE PROTEIN - DIPSTICK NEGATIVE (NEG-TRACE); URINE SPECIFIC GRAVITY 1.025; URINE UROBILINOGEN - DIPSTICK 0.2 E.U./dL (0.2)
[2019-11-10 17:36] LABS: URINE LEUK ESTERASE MODERATE (NEGATIVE); URINE NITRITE - DIPSTICK POSITIVE (Negative)
[2019-11-10 17:44] LABS: URINE SQUAMOUS EPITHELIAL CELL FEW EPI/hpf (0-FEW); URINE WBC >100 WBC/hpf (0-5)
[2019-11-10 17:45] LABS: URINE BACTERIA FEW hpf
--- NOTE | 2019-11-10 18:17 | NUR ---
FACE PAIN SCALE OF 4 PER PT. CONTINUE TO MONITOR
[2019-11-10 18:22] VITALS: BP 134/72
--- NOTE | 2019-11-10 20:48 | NUR ---
PT ASSESSMENT COMPLETED AT THIS TIME. NO S/ DISTRESS. PT REPORTS PAIN PILL PREVIOUSLY ADMINISTERED IS HELPING MAKE HER MORE COMFORTABLE. R.FOOT ELEVATED ON PILLOWS. NEGRITA DRESSING TO RLE. PEDAL PULSES PALPABLE, TOES ARE WARM TO TOUCH.
--- NOTE | 2019-11-10 20:51 | NUR ---
PT HAS BEEN MEDICATED FOR PAIN IN RLE. FOOT HAS BEEN ELEVATED ON PILLOW.
--- NOTE | 2019-11-10 20:57 | NUR ---
PT ASSESSMENT COMPLETED AT THIS TIME. PT HAS BEEN PREVIOUSLY MEDICATED BY FLOOR NURSE AISHA. NO S/O DISTRESS AT THIS TIME. PT ASKING FOR WATER, DENIES ANY OTHER NEEDS. DRESSING TO R.HEEL CDI
[2019-11-10 23:39] VITALS: BP 130/78
[2019-11-11] VITALS (10 sets, daily range): BP systolic 110–154; BP diastolic 46–87
--- NOTE | 2019-11-11 | NUR ---
PO FLUIDS REMOVED FROM ROOM/PT NPO AT THIS TIME.
--- NOTE | 2019-11-11 01:38 | NUR ---
PT APPEARS TO BE SLEEPING, DOOR IS OPEN, LIGHTS ARE OFF, TV ON LOW. NO S/O DISTRESS NOTED. CALL LIGHT W/IN REACH.
--- NOTE | 2019-11-11 03:00 | NUR ---
PT IS SLEEPING AT THIS TIME. IVF REPLENISHED.
--- NOTE | 2019-11-11 07:37 | NUR ---
SPOKE TO DR TUBBS. PER SULY IT IS OKAY FOR PT TO GET MORNING MEDICATIONS.
--- NOTE | 2019-11-11 07:46 | NUR ---
PT SITTING IN BED WATCHING TV. A&O NO DISTRESS NOTED. ASKED PT IF SHE REMEBERED THAT SHE WAS HAVING SURGERY TODAY, PT VERBALIZED THAT SHE DID. PT DENIES PAIN AT THIS TIME. ASSESSMENT COMPLETED. DISCUSSED POC. CALL LIGHT IN REACH CONTINUE TO MONITOR.
--- NOTE | 2019-11-11 09:10 | NUR ---
PER INDY ER CALLED TO NOTIFY THAT PT HAD 6 BEAT RUN OF VTACH. ARPN TO BE NOTIFIED. PT IN NO DISTRESS.
--- NOTE | 2019-11-11 09:15 | NUR ---
KATHY ARITA NOTIFIED, TENZIN ARITA CONTINUE TO MONITOR PT
--- NOTE | 2019-11-11 10:15 | NUR ---
OR CONSENT OBTAINED.
--- NOTE | 2019-11-11 11:11 | NUR ---
PT TAKEN DOWN TO THE OR ACCOMPANIED BY
--- NOTE | 2019-11-11 18:33 | NUR ---
PT ARRIVED FROM THE OR
--- NOTE | 2019-11-11 19:32 | NUR ---
PT APPEARS TO BE SLEEPING, NO S/O DISTRESS NOTED. IVF RUNNING TO 20 IN /SITE APPEARS HEALTHY. V/S ARE STABLE AT THIS TIME. PT AWOKE TO MY VOICE, REPORTS HAVING SOME SHARP PAIN, BUT FALLS BACK TO SLEEP PRIOR TO MY LEAVING ROOM
--- NOTE | 2019-11-11 20:15 | NUR ---
PT ASSESSMENT COMPLETED AT THIS TIME AND PT MEDICATED ORDERS PROVIDE AND FOR PAIN. SCD PLACED TO LLE, CIRCULATION INTACT TO RLE TOES. DRESSING CDI TO RLE AND LEG IS ELEVATED ON PILLOWS. ICEPACK TO RLE. PT SMILED AT ME, BUT GRIMICED IN PAIN WHEN ASKED ABOUT HER PAIN.
[2019-11-12] VITALS (7 sets, daily range): BP systolic 116–134; BP diastolic 54–62
--- NOTE | 2019-11-12 03:40 | NUR ---
PT AWAKE, AIDE IN OBTAINING V/S. PT PROVIDED ICECREAM AND ICEPACK PLACED TO RLE. RLE ELEVATED ON PILLOWS. IS AT BEDSIDE, PT DEMONSTRATED 2X @500 IV. ASSISTED PT FINDING NEW CHANNEL ON TV. DENIES ANY OTHER NEEDS AND REMINDED OF CALL LIGHT USAGE.
--- NOTE | 2019-11-12 05:00 | NUR ---
PT BATHED OF INCONTINENT URINE AND BEDDING CHANGED AT THIS TIME. PT TOLERATED WELL. FEET ELEVATED W/2 PILLOWS AND ICEPACK PLACED TO RLE
[2019-11-12 05:31] LABS: MEAN CELL VOLUME 84.9 fL CALC (80.0-100.0); MEAN CORPUSCULAR HGB 26.8 pG CALC (26.0-32.0); MEAN CORPUSCULAR HGB CONC 31.5 g/dL CAL (32.0-36.0); RED BLOOD COUNT 3.51 mill/uL (4.20-5.60); RED CELL DISTRI WIDTH 13.9 % (11.5-15.5)
[2019-11-12 05:39] LABS: HEMATOCRIT 29.8 % (37.0-47.0); HEMOGLOBIN 9.4 g/dl (12.0-16.0)
[2019-11-12 05:40] LABS: BILIRUBIN, TOTAL 0.2 mg/dL (0.0-1.4); CREATININE 1.3 mg/dL (0.5-1.0)
[2019-11-12 05:43] LABS: ALBUMIN 2.8 g/dL (3.2-5.0); POTASSIUM 5.8 mmol/l (3.5-5.1); TOTAL PROTEIN 5.3 g/dL (6.3-8.2)
--- NOTE | 2019-11-12 06:12 | NUR ---
PT MEDICATED W/IV ANTIBIOTIC THERAPY. PT WAS SLEEPING, AWOKE TO MY ENTERING ROOM AND RETURNED BACK TO SLEEP. LIGHTS ARE OFF AND TV ON.
--- NOTE | 2019-11-12 07:30 | NUR ---
PT RESTING IN BED, NO SIGNS OF DISTRESS NOTED, RESP EVEN AND UNLABORED. PT ALERT AND ORIENTED X3, SOME COGNITIVE DEFECIT NOTED. DISCUSSED POC, RLE ELEVATED ON PILLOW, DRESSING INTACT, UNABLE TO ASSESS PEDAL PULSE, BUT TOES WARM AND DRY, BRISK CAPILLARY REFILL. ASSESSMENT COMPLETED, CALL LIGHT IN REACH,CONTINUE TO MONITOR.
--- NOTE | 2019-11-12 09:34 | NUR ---
WHEN ASKED IF PT HAS ANY PAIN, PT REPLIED "YES", PT MEDICATED WITH PERCOCET 1 COMBO, NO SIGNS OF DISTRESS NOTED, RESP EVEN AND UNLABORED. CALL LIGHT IN REACH,CONTINUE TO MONITOR.
--- NOTE | 2019-11-12 09:59 | NUR ---
PADDLE DYEING MACHINE OPERATOR NOTIFIED OF STRINGY YELLOWISH MUCUS ON INCONTINENCE PAD, REVIEWED MICRO OF UA SENT, PT IS POSITIVE MRSA IN URINE CULTURE.
--- NOTE | 2019-11-12 10:45 | NUR ---
DISCUSSED VANCOMYCIN, PT AGREED WITH PLAN. INITIATED VANCO, CALL LIGHT IN REACH,CONTINUE TO MONITOR.
--- NOTE | 2019-11-12 14:07 | NUR ---
DICUSSED KAYEXALATE, PT VERBALIZED UNDERSTANDING. MEDICATED PER OCT, PT TOLERATED WELL. CALL LIGHT IN REACH,CONTINUE TO MONITOR.
--- NOTE | 2019-11-12 14:52 | NUR ---
S: DREW MONTE is a 69 F who presents with UTI MRSA. She has a history of FRACTURE OF FIBULA . All medications in patient's chart were reviewed. O: VS: BP 128/54, P 74, RR 19 ,T 98.8 W 104 kg, HT 72 IN, Scr= 1.3 ,CrCl= 54ml/min> A: Blood culture <is pending/show> which is sensitive to <>. Urine culture is show MRSA P: Patient is on VANCO PHARMACY TO DOSE . Vancomycin ordered for pharmacy to dose. Start Vancomycin 1 GRAM IV Q12H. Vancomycin trough is drawn before the 4th dose on 11/13/19 @2200. Vancomycin goal trough is between <10-20 mcg/ml>. Pharmacy will follow and or advise on antibiotics use as needed. KENTON AKERSD
--- NOTE | 2019-11-12 17:05 | NUR ---
PT C/O PAIN, MEDICATED WITH PERCOCET 1 COMBO, CALL LIGHT IN REACH,CONTINUE TO MONITOR.
--- NOTE | 2019-11-12 19:15 | NUR ---
PT RESTING IN BED AWAKE AND WATCHING TV. PT IS ALERT AND ORIENTED X3. PT IS SIMPLE WHICH IS HER NORM. SHIFT ASSESSMENT COMPLETED AT THIS TIME. IV PATENT X1. ABLE TO MOVE TOES ON RIGHT FOOT. RLE ELEVATED AT THIS TIME. CALL LIGHT IN REACH. WILL CONTINUE TO MONITOR
--- NOTE | 2019-11-12 19:45 | NUR ---
SISTER POPEYE CALLEDFOR UPDATE. UPDATE PROVIDED
[2019-11-13] VITALS (30 sets, daily range): BP systolic 90–139; BP diastolic 42–89
--- NOTE | 2019-11-13 | NUR ---
PT RESTING IN BED AWAKE AND WATCHING TV. RESP ARE EVEN AND UNABORED. NO DISTRESS NOTED. CALL LIGHT IN REACH. WILL CONTINUE TO MONIOTR.
[2019-11-13 04:58] LABS: HEMATOCRIT 26.5 % (37.0-47.0); HEMOGLOBIN 8.1 g/dl (12.0-16.0); MEAN CELL VOLUME 88.9 fL CALC (80.0-100.0); MEAN CORPUSCULAR HGB 27.2 pG CALC (26.0-32.0); MEAN CORPUSCULAR HGB CONC 30.6 g/dL CAL (32.0-36.0); RED BLOOD COUNT 2.98 mill/uL (4.20-5.60); RED CELL DISTRI WIDTH 14.2 % (11.5-15.5)
[2019-11-13 05:09] LABS: ALBUMIN 2.7 g/dL (3.2-5.0); ALKALINE PHOSPHATASE 84 u/l (38-126); BUN 25 mg/dL (8-23); BUN/CREATININE RATIO 25 (12-20 (CALC)); CARBON DIOXIDE 21 mmol/l (22-30); CHLORIDE 110 mmol/l (95-108); GFR 55 ML/MIN (>=60 (CALC)); GFR FOR AFR.AMER. > 60 ML/MIN (>=60 (CALC)); SGOT/AST 35 u/l (9-36); SODIUM 136 mmol/l (137-146); TOTAL PROTEIN 5.3 g/dL (6.3-8.2)
--- NOTE | 2019-11-13 05:12 | NUR ---
ER CALLED AND STATED PTWAS AFIB 130-140. EKG ORDERED AT THIS TIME.
[2019-11-13 05:15] LABS: ANION GAP 9 (6-22 (CALC)); BILIRUBIN, TOTAL 0.3 mg/dL (0.0-1.4); POTASSIUM 4.4 mmol/l (3.5-5.1)
--- NOTE | 2019-11-13 05:18 | NUR ---
RT AT BEDSIDE AT THIS TIME FOR EKG
--- NOTE | 2019-11-13 05:25 | NUR ---
DR MCGRATH AT BEDSIDE FOR ECALUATION. ORDERS RECEIVED TO TRANSFER PATIENT TO ICU
--- NOTE | 2019-11-13 05:40 | NUR ---
TRANSFERRED INTO ICU 6 FROM /S FOR AFIB RVR. PATIENT ACCOMPANIED BY FRANCK/REILLY AND DR MCGRATH. VERBAL ORDERS RECEIVED FROM DR MCGRATH. PATIENT ALERT AND ORIENTED. PLEASANT. PINK, WARM AND DRY. RESP NON-LABORED. O2 ON AT 3 L NC. BREATH SOUNDS CLEAR THROUGHOUT. RIGHT LOWER LEG/FOOT IN SPLINT WITH BULKY DSG AND NEGRITA WRAP-TOES EXPOSED ARE EDEMATOUS, ADEQUATE CMS. PERIPHERAL PULSES PALPABLE. IV IN LH WITH NS AT 100 ML/HR. MONITOR SHOW AFIB, HR 138-140'S. VSS.
--- NOTE | 2019-11-13 05:40 | NUR ---
PT TO ICU VIA BED. BEDSIDE REPORT GIVEN TO Juliann MÉNDEZ RN.
--- NOTE | 2019-11-13 06:10 | NUR ---
CARDIZEM BOLUS GIVEN AND GTT STARTED AT 10 MG/HR.
--- NOTE | 2019-11-13 06:15 | NUR ---
DR MCGRATH CALLED FOR UPDATE ON PATIENT.
[2019-11-13 06:40] LABS: MYOGLOBIN 282 ng/mL (0 - 62)
--- NOTE | 2019-11-13 08:04 | NUR ---
RESTING AT THIS TIME. EASILY AROUSED. ALERT AND RESPONSIVE. NO C/O PAIN VOICED.
[2019-11-13 09:05] LABS: PROTHROMBIN TIME 10.2 SECONDS (9.0-12.5)
--- NOTE | 2019-11-13 10:48 | NUR ---
CARDIAZEM GTT TITRATED OFF HR BELOW 110 AND SBP 90S.
--- NOTE | 2019-11-13 12:10 | NUR ---
HAVING LUNCH AT THIS TIME. JYOTI BELL DCI.
--- NOTE | 2019-11-13 14:05 | NUR ---
RBC INFUSING AT THIS TIME. NO S/S OF BLOOD PRODUCT REACTIONS NOTED. FREQ ROUNDS MADE TO ENSURE PT SAFETY.
--- NOTE | 2019-11-13 16:30 | NUR ---
FREQ ROUNDS MADE BY STAFF TO ENSURE PT SAFETY.
--- NOTE | 2019-11-13 18:03 | NUR ---
CARDIAZEM GTT RESTARTED POST RBC TRANSFUSION RELATED TO ELEVATION IN HR.
--- NOTE | 2019-11-13 19:00 | NUR ---
REPORT FROM REILLY BUCK. ASSUMED PT. CARE.
--- NOTE | 2019-11-13 19:45 | NUR ---
PT. FOUND SITTING UP IN BED IN NO DISTRESS. RESPS EVEN AND UNLABORED. ORIENTED PER HER NORMAL PER DAY SHIFT STAFF. GOOD DISTIL CAP REFILL. GOOD MOVEMENT NOTED TO RT. TOES UPON COMMAND. LUNGS CTA. BOWEL SOUNDS ACTIVE. PT. C/O 03/02 PAIN TO RT. LOWER EXTREMITY. CARDIZEM DRIP INFUSING AT 10 MG/HR AT THIS TIME. REMAINS IN A-FIB WITH RATE IN THE 110-130'S. PT. REMAINS STABLE. BP STABLE. CALL LIGHT WITHIN REACH. WILL CONTINUE TO CLOSELY MONITOR.
--- NOTE | 2019-11-13 21:30 | NUR ---
PT. RESTING IN BED IN NO DISTRESS. RESPS EVEN AND UNLABORED. UPDATED ON PLAN OF CARE AND NEED TO VANCOMYCIN TROUGH DUE AT 2200. PT. VERBALIZES UNDERSTANDING OF NEED. CALL LIGHT REMAINS WITHIN REACH. WILL CONTINUE TO CLOSELY MONITOR.
--- NOTE | 2019-11-13 22:50 | NUR ---
CARDIZEM DRIP DECREASED TO 5 MG/HR. PT. FOUND TO BE IN SINUS RHYTHM. WILL CONTINUE TO DECREASE PER ORDERS.
[2019-11-14] VITALS (10 sets, daily range): BP systolic 97–145; BP diastolic 52–66
--- NOTE | 2019-11-14 00:30 | NUR ---
CARDIZEM DRIP DISCONTINUED AT THIS TIME. VANCO INFUSION CONTINUES WITHOUT SIGNS OF REACTIONS. CALL LIGHT REMAINS WITHIN REACH. CONTINUES TO REST WITH EYES CLOSED AND SNORING RESPIRATIONS.
--- NOTE | 2019-11-14 02:15 | NUR ---
PT. RESTING IN BED WITH EYES CLOSED IN NO DISTRESS. RESPS REMAIN EVEN AND UNLABORED. HR REMAIN SINUS WITH PVC'S AND PAC'S. WILL CONTINUE TO CLOSELY MONITOR.
--- NOTE | 2019-11-14 04:05 | NUR ---
PT. REMAINS STABLE ON THE MONITOR. CALL LIGHT REMAINS WITHIN REACH. SKIN REMAINS WARM AND DRY. AFEBRILE. RESPS EVEN AND UNLABORED. REMAINS NSR WITH PVC/PAC'S.
--- NOTE | 2019-11-14 06:00 | NUR ---
PT. AROUSABLE TO LIGHT VERBAL STIMULI. DENIES PAIN AT THIS TIME. OFFERED TO ASSIST PATIENT WITH AM CARE, BUT PT. DENIES NEED AT THIS TIME. RESPS REMAIN EVEN AND UNLABORED. PT. REMAINS IN NSR.
--- NOTE | 2019-11-14 07:45 | NUR ---
PT RESTING IN BED WITH EYES CLOSED. NO DISTRESS NOTED. DENIES PAIN. WILL CONTINUE TO MONITOR
--- NOTE | 2019-11-14 07:50 | NUR ---
PT ABLE TO WIGGLE TOES ON RLE.
--- NOTE | 2019-11-14 09:20 | NUR ---
DR. ARTEAGA AT BEDSIDE TO ASSESS PT
--- NOTE | 2019-11-14 09:38 | NUR ---
DR TUBBS AT BEDSIDE TO ASSESS PT
[2019-11-14 09:52] LABS: HEMATOCRIT 30.9 % (37.0-47.0); HEMOGLOBIN 9.7 g/dl (12.0-16.0); MEAN CELL VOLUME 85.6 fL CALC (80.0-100.0); MEAN CORPUSCULAR HGB 26.9 pG CALC (26.0-32.0); MEAN CORPUSCULAR HGB CONC 31.4 g/dL CAL (32.0-36.0); RED BLOOD COUNT 3.61 mill/uL (4.20-5.60); RED CELL DISTRI WIDTH 14.4 % (11.5-15.5)
--- NOTE | 2019-11-14 10:00 | NUR ---
AK RESTING IN BED, WATCHING TV. NO DISTRESS NOTED. DENIES PAIN. WILL CONTINUE TO MONITOR
--- NOTE | 2019-11-14 12:00 | NUR ---
PT UP IN BED FOR LUNCH. DENIES PAIN. NO DISTRESS NOTED. VOIDING VIA PURWICK. WILL CONTINUE TO MONITOR
--- NOTE | 2019-11-14 14:00 | NUR ---
PT RESTING IN BED. MEDSURG STATUS. DENIES PAIN. WILL CONTINUE TO MONITOR
--- NOTE | 2019-11-14 14:15 | NUR ---
REPORT GIVEN TO REILLY SMITH
--- NOTE | 2019-11-14 14:50 | NUR ---
PT TRANSFERRED TO [facility] IN STABLE CONDITION. PT BELONGINS, MEDICAL CHART AND MEDICATION SENT WITH PT. PT ON OXYGEN. DENIES PAIN. NO DISTRESS NOTED. PT INFORMED OF TRANSFER AND [facility] STATUS
--- NOTE | 2019-11-14 14:54 | NUR ---
REPORT RECEIVED FROM REILLY MELCHOR. PT ARRIVED TO ROOM 268 AT 1445 VIA BED IN STABLE CONDITION. ALERT AND PLEASANTLY CONFUSED. DENIES PAIN. RESPIRATIONS EVEN AND UNLABORED ON OXYGEN 2L VIA NC. PURWIK CATHETER IN PLACE. NWB TO RLE WITH SURGICAL DRESSING CDI; SCD TO LLE. TELE APPLIED. VSS. ORIENTED TO ROOM AND CALL LIGHT SYSTEM. SAFETY MEASURES IN PLACE INCLUDING BED ALARM. CALL LIGHT WITHIN REACH.
--- NOTE | 2019-11-14 18:55 | NUR ---
PERCOCET GIVEN FOR 10/10 RLE PAIN.
--- NOTE | 2019-11-14 19:00 | NUR ---
RECEIVED REPORT FROM DAY SHIFT NURSE, PATIENT APPEARS TO B SLEEPING WITH EYES CLOSED, WITH EVEN UNLABORED BREATHING CALL LIGHT AT REACH.
--- NOTE | 2019-11-14 21:00 | NUR ---
PATIENT ALERT ABLE TO MAKE NEEDS KNOWN, WITH SALINE LOCK ON LEFT HAND G 20 PATENT INFUSING WELL, REMAINS ON TELE AND ON CONTINUOS O2 @ 2LPM VIA NC, PUREWICK IN PLACE DRAINING YELLOW COLORED URINE, DRESSING ON RT FOOT CDI, REMAINS NWB ON RT LEG.
--- NOTE | 2019-11-15 00:29 | NUR ---
PATIENT RESTING IN BED EYES CLOSED EVEN UNLABORED BREATHING CALL LIGHT AT REACH.
[2019-11-15 03:21] VITALS: BP 123/60
--- NOTE | 2019-11-15 04:55 | NUR ---
PATIENT AWAKE AT THIS TIME, PERICARE DONE, NEW PUREWICK IN PLACE.
[2019-11-15 05:23] LABS: HEMATOCRIT 29.1 % (37.0-47.0); HEMOGLOBIN 9.3 g/dl (12.0-16.0); MEAN CELL VOLUME 84.3 fL CALC (80.0-100.0); RED BLOOD COUNT 3.45 mill/uL (4.20-5.60); RED CELL DISTRI WIDTH 14.1 % (11.5-15.5)
[2019-11-15 05:40] LABS: ANION GAP 11 (6-22 (CALC)); BUN 15 mg/dL (8-23); BUN/CREATININE RATIO 16 (12-20 (CALC)); CARBON DIOXIDE 24 mmol/l (22-30); CHLORIDE 105 mmol/l (95-108); GFR 55 ML/MIN (>=60 (CALC)); GFR FOR AFR.AMER. > 60 ML/MIN (>=60 (CALC)); POTASSIUM 3.9 mmol/l (3.5-5.1); SODIUM 136 mmol/l (137-146)
[2019-11-15 08:04] VITALS: BP 109/67
--- NOTE | 2019-11-15 08:17 | NUR ---
SHIFT CHANGE REPORT, PT AWAKE AND ALERT, C/O CHEST PAIN, TELE FINE ARTS MODEL REPORTED A-FIB IN 130'S, EKG ORDERED, DR TAI NOTIRIED, GAVE ORDER FOR TROP. DOES NOT SEEM TO BE IN DISTRESS AT THIS TIME, EATING MEAL, WILL CONTINUE TO MONITOR.
[2019-11-15 10:58] VITALS: BP 128/66
--- NOTE | 2019-11-15 11:06 | NUR ---
DR TUBBS HERE ROUNDING, DID DRESSINGS TO LEGS, PT TOLERATED WELL.
[2019-11-15 14:45] VITALS: BP 116/65
[2019-11-15 18:28] VITALS: BP 113/65
--- NOTE | 2019-11-15 19:00 | NUR ---
RECEIVED REPORT FROM DAY SHIFT NURSE PATIENT RESTING IN BED EYS CLOSED, NO DISCOMFORTS NOTED AT THIS TIME.
--- NOTE | 2019-11-15 22:09 | NUR ---
SPOKE TO [facility], ABOUT PATIENT HAVING 4 TH DOSE OF VANCOMYCIN WITH AN STATED THAT TROUGH IS NOT NEEDED AT THIS TIME, BECAUSE IT WAS DONE 2 DAYS AGO AND ITS ON THERA PEUTIC LEVEL.
[2019-11-15 23:32] VITALS: BP 107/64
--- NOTE | 2019-11-16 00:17 | NUR ---
PATIENT RESTING IN BED, WITH EYE CLOSED, EVEN UNLABORED RESPIRATION, CALL LIGHT AT REACH.
[2019-11-16 03:30] VITALS: BP 117/66
--- NOTE | 2019-11-16 04:00 | NUR ---
PERICARE DONE, NEW PUREWICK IN PLACE.
[2019-11-16 05:26] LABS: HEMATOCRIT 31.5 % (37.0-47.0); HEMOGLOBIN 9.7 g/dl (12.0-16.0); MEAN CELL VOLUME 85.8 fL CALC (80.0-100.0); MEAN CORPUSCULAR HGB 26.4 pG CALC (26.0-32.0); MEAN CORPUSCULAR HGB CONC 30.8 g/dL CAL (32.0-36.0); RED BLOOD COUNT 3.67 mill/uL (4.20-5.60)
[2019-11-16 05:40] LABS: ANION GAP 10 (6-22 (CALC)); BUN 18 mg/dL (8-23); BUN/CREATININE RATIO 17 (12-20 (CALC)); CARBON DIOXIDE 27 mmol/l (22-30); CHLORIDE 104 mmol/l (95-108); GFR 55 ML/MIN (>=60 (CALC)); GFR FOR AFR.AMER. > 60 ML/MIN (>=60 (CALC)); MAGNESIUM 1.8 mg/dL (1.6-2.3); POTASSIUM 4.1 mmol/l (3.5-5.1); SODIUM 136 mmol/l (137-146)
--- NOTE | 2019-11-16 07:00 | NUR ---
SHIFT CHANGE REPORT, PT AWAKE AND ALERT RELAXING IN BED, O2 @ 2L VIA NC IN PLACE, TELE MONITOR IN PLACE, DENIES PAIN, PUREWICK IN PLACE DRAINING CLEAR YELLOW URINE, DRESSING TO RLE AND LLE CDI, RIGHT LEG ELEVATED, BED IN LOWEST POSITION AND CALL FARRELL IN REACH.
[2019-11-16 07:43] VITALS: BP 127/59
[2019-11-16 10:35] VITALS: BP 130/77
[2019-11-16 15:22] VITALS: BP 132/81
--- NOTE | 2019-11-16 15:33 | NUR ---
RESTING IN BED, OFFERED MAG.CITRATE AFTER INFORMING/EDUCATING ON MED, PT RELUCTANT TO TAKE BUT CONSUMED THE WHOLE BOTTLE AFTER MUCH ENCOURAGEMENT.
--- NOTE | 2019-11-16 17:00 | NUR ---
DISCOVERED WITH LARGE AMOUNT YELLOW LIQUIDY VOMITUS ON UPPER BED, STATED SHE COULDNT HELP IT, UPPER BODY CLEANED, LINNEN CHANGED AND PT SETTLED WITH CALL FARRELL IN REACH.
[2019-11-16 18:58] VITALS: BP 132/77
--- NOTE | 2019-11-16 19:06 | NUR ---
REPORT RECEIVED FROM REILLY MORIN. PT RESTING IN BED. NO S/S OF DISTRESS AT THIS TIME. WILL CONTINUE TO MONITOR.
--- NOTE | 2019-11-16 20:30 | NUR ---
PT RESTING IN BED ALERT. RESPIRATIONS EVEN AND UNLABORED ON O2 @ 2L VIA NC. LUNGS SOUND CLEAR/DIMINISHED. DRESS TO THE RIGHT LEG DCI. PT REPORTS HAVING PAIN IN HER RIGHT LEG RATING IT A 10/10. TELE IN PLACE. CALL FARRELL WITHIN REACH. WILL CONTINUE TO MONITOR.
--- NOTE | 2019-11-17 00:25 | NUR ---
PT RESTING IN BED. NO S/S OF DISTRESS AT THIS TIME. SAFETY PRECAUTIONS IN PLACE. WILL CONTINUE TO MONITOR.
[2019-11-17 00:26] VITALS: BP 114/63
--- NOTE | 2019-11-17 04:28 | NUR ---
PT RESTING IN BED NO S/S OF DISTRESS AT THIS TIME.
[2019-11-17 05:00] VITALS: BP 122/71
--- NOTE | 2019-11-17 07:31 | NUR ---
SHIFT CHANGE REPORT, PT AWAKE AND ALERT RESTING IN BED, O2 @ 2L VIA NC IN PLACE, TELE MONITOR IN PLACE, DENIES DISCOMFORT, CALL FARRELL IN REACH.
[2019-11-17 07:57] VITALS: BP 125/80
[2019-11-17 11:08] VITALS: BP 128/70
[2019-11-17] MEDS ORDERED: PERCOCET 10/31 COMBO PO (11:17)
[2019-11-17] MEDS ORDERED: DOXYCYCL HYC100 MG PO (11:17)
--- NOTE | 2019-11-17 13:37 | NUR ---
REPORT GIVEN TO DANYELL RAMSAY AT IF, PT EXPECTED TIME OF DEPARTURE IS 1500.
--- NOTE | 2019-11-17 15:42 | NUR ---
Discharge instructions given. Patient verbalizes understanding of same. Discharged in fair condition via Medical Transport to [facility] with *Other. All belongings sent with pt.
== END 2019-11-17 15:50 | DRG 493 ==
LOC: MS2 11:07 → ICU 11:07 → MS2 11-14 14:45
PROVIDERS: Emergency Medicine; Nurse Practitioner Family; ADMIT Internal Medicine; ATTEND Internal Medicine
PROC: 0SGF07Z Fusion of Right Ankle Joint with Autologous Tissue Substitute, Open Approach (ICD-10-PCS; principal; 2019-11-11)
PROC: 0SGF0KZ Fusion of Right Ankle Joint with Nonautologous Tissue Substitute, Open Approach (ICD-10-PCS; 2019-11-11)
PROC: 0QBL0ZZ Excision of Right Tarsal, Open Approach (ICD-10-PCS; 2019-11-11)
PROC: 0L8N3ZZ Division of Right Lower Leg Tendon, Percutaneous Approach (ICD-10-PCS; 2019-11-11)
PROC: 3E0T3BZ Introduction of Anesthetic Agent into Peripheral Nerves and Plexi, Percutaneous Approach (ICD-10-PCS; 2019-11-11)
PROC: 3E02340 Introduction of Influenza Vaccine into Muscle, Percutaneous Approach (ICD-10-PCS; 2019-11-11)
PROC: 30233N1 Transfusion of Nonautologous Red Blood Cells into Peripheral Vein, Percutaneous Approach (ICD-10-PCS; 2019-11-13)
DX: S82.851P Displaced trimalleolar fracture of right lower leg, subsequent encounter for closed fracture with malunion (principal); N17.9 Acute kidney failure, unspecified; F72 Severe intellectual disabilities; N39.0 Urinary tract infection, site not specified; D62 Acute posthemorrhagic anemia; M67.01 Short Achilles tendon (acquired), right ankle; I48.0 Paroxysmal atrial fibrillation; M62.81 Muscle weakness (generalized); E86.0 Dehydration; I12.9 Hypertensive chronic kidney disease with stage 1 through stage 4 chronic kidney disease, or unspecified chronic kidney disease; N18.9 Chronic kidney disease, unspecified; K59.00 Constipation, unspecified; B95.62 Methicillin resistant Staphylococcus aureus infection as the cause of diseases classified elsewhere; W19.XXXD Unspecified fall, subsequent encounter; Z91.19 Patient's noncompliance with other medical treatment and regimen; Z79.01 Long term (current) use of anticoagulants; Z23 Encounter for immunization; G89.18 Other acute postprocedural pain
CPT/HCPCS: C1713; C1762; J0131; J1100; P9016

== ENCOUNTER 2019-11-18 22:10 | Inpatient (IN) | payer MEDICARE, MEDICAID ==
[~2019-11-18] VITALS: Ht 175.3 cm; Wt 104.5 kg
[2019-11-18 22:00] VITALS: BP 137/66
--- NOTE | 2019-11-18 22:00 | NUR ---
PT ARRIVES TO UNIT @ 2200 ON STRETCHER W/ O2 AND IVF HANGING. ACCOMPANIED BY TRANSPORT STAFF X2. PT SLID ON TO BED W/ ASSIST OF ASPHALT HEATER OPERATOR AND TRANSPORT STAFF. PT MADE COMFORTABLE IN BED, ORIENTED TO ROOM AND UNIT. PHYSICAL ASSESMENT COMPLETE @ THIS TIME. PLAN OF CARE REVIEWED W/ PT. PT VERBALIZES UNDERSTANDING, DENIES QUESTIONS @ THIS TIME. BED LOCKED IN LOW POSITION, BED RAILS UPX2, ITEMS WITHIN REACH. AIRBORNE/CONTACT PRECAUTIONS IN PLACE. CALL FARRELL WITHIN REACH, AGREES TO CALL PRN.
[~2019-11-18 22:10] MED LIST changes: +DOXYCYCL HYC100 MG PO; +NEO/POLY/DEX0.13 OU; +PERCOCET 10/31 COMBO PO
[2019-11-18 23:25] LABS: URINE BILIRUBIN - DIPSTICK NEGATIVE (NEGATIVE); URINE BLOOD DIPSTICK SMALL (NEGATIVE); URINE CLARITY CLEAR; URINE COLOR YELLOW; URINE GLUCOSE - DIPSTICK NEGATIVE (NEGATIVE); URINE KETONE NEGATIVE (NEGATIVE); URINE LEUK ESTERASE TRACE (Negative); URINE NITRITE - DIPSTICK NEGATIVE (Negative); URINE PH 8.5 (4.5-8.0); URINE PROTEIN - DIPSTICK NEGATIVE (NEG-TRACE); URINE SPECIFIC GRAVITY 1.015; URINE UROBILINOGEN - DIPSTICK 0.2 E.U./dL (0.2)
[2019-11-19 00:20] VITALS: BP 135/60
[2019-11-19 01:50] LABS: HEMATOCRIT 31.8 % (37.0-47.0); HEMOGLOBIN 9.9 g/dl (12.0-16.0); IMMATURE GRANULOCYTES 0.7 % (0.0-5.0); MEAN CELL VOLUME 84.1 fL CALC (80.0-100.0); MEAN CORPUSCULAR HGB 26.2 pG CALC (26.0-32.0); MEAN CORPUSCULAR HGB CONC 31.1 g/dL CAL (32.0-36.0); NEUT# 7.75 thou/uL (2.00-7.15); RED BLOOD COUNT 3.78 mill/uL (4.20-5.60); RED CELL DISTRI WIDTH 13.8 % (11.5-15.5)
[2019-11-19 02:02] LABS: BILIRUBIN, TOTAL 0.3 mg/dL (0.0-1.4); CREATININE 1.2 mg/dL (0.5-1.0); POTASSIUM 3.6 mmol/l (3.5-5.1)
--- NOTE | 2019-11-19 02:07 | NUR ---
PT APPEARS TO BE SLEEPING COMFORTABLY, NO APPARENT DISTRESS. RESP REG AND UNLABORED. FALL, SAFETY, AND ISOLATION PRECAUTIONS REMAIN IN PLACE. CALL FARRELL REMAINS WITHIN REACH.
[2019-11-19 02:18] LABS: ALBUMIN 3.3 g/dL (3.2-5.0); TOTAL PROTEIN 6.5 g/dL (6.3-8.2)
[2019-11-19 03:45] VITALS: BP 145/63
--- NOTE | 2019-11-19 05:40 | NUR ---
PT APPEARS TO BE SLEEPING COMFORTABLY, NO APPARENT DISTRESS. RESP REG AND UNLABORED. FALL, SAFETY, AND ISOLATION PRECAUTIONS REMAIN IN PLACE. CALL FARRELL REMAINS WITHIN REACH.
--- NOTE | 2019-11-19 07:30 | NUR ---
Head to toe assessment completed. A&Ox1 able to make needs known at times. Patient lung sounds dimished. Skin intact. Compression wrap on right leg. Hernández draining yellow urine. Postive for bowel sounds.
[2019-11-19 10:45] VITALS: BP 149/66
[2019-11-19 16:05] VITALS: BP 140/82
--- NOTE | 2019-11-19 17:16 | NUR ---
Patient resting in bed watching TV, Assisted with ADL's by staff. Patient is a feeder. C/O pain and nurse will medicate patient.
[2019-11-19 19:16] VITALS: BP 135/62
--- NOTE | 2019-11-19 20:35 | NUR ---
PHYSICAL ASSESMENT COMPLETE. LAST SET OF VS TAKEN @ 1915 ASSESED. PT AFEBRILE, PRIMARY HEMODYNAMICS STABLE/WNL. RESP REG & UNLABORED. PT AWAKE AND ALERT W/ HX OF DEVELPMENTAL IMPAIRMENT. PT IS CALM AND COOPERATIVE. PLAN OF CARE REVIEWED W/ PT, PT WILL NEED FREQUENT REINFORCEMENT SECONDARY TO COGNITIVE LIMITATIONS. WILL CON'T TO REINFORCE. PT DENIES NEEDS OR DISCOMFORT @ THIS TIME. BED LOCKED IN LOW POSITION W/ BEDRAILS UPX2, ITEMS WITHIN REACH. AIRBORNE/CONTACT ISOLATION IN PLACE W/ NEGATIVE PRESSURE. CALL FARRELL WITHIN REACH. AGREES TO CALL PRN.
[2019-11-20] VITALS (7 sets, daily range): BP systolic 126–162; BP diastolic 54–73
--- NOTE | 2019-11-20 | NUR ---
VS TAKEN BY WILDER @0002 ASSESED. PT AFEBRILE, PRIMARY HEMODYNAMICS STABLE/WNL. RESP REG & UNLABORED. PT IS RESTING IN BED COMFORTABLY AND DENIES NEEDS @ THIS TIME. VANCO TROUGH DRAWN AND SENT TO LAB. BED LOCKED IN LOW POSITION W/ BEDRAILS UPX2, ITEMS WITHIN REACH. AIRBORNE/CONTACT ISOLATION IN PLACE W/ NEGATIVE PRESSURE. CALL FARRELL WITHIN REACH. AGREES TO CALL PRN.
--- NOTE | 2019-11-20 05:19 | NUR ---
VS TAKEN BY WILDER @7677 ASSESED. PT AFEBRILE, PRIMARY HEMODYNAMICS STABLE/WNL. RESP REG & UNLABORED. PT IS RESTING IN BED COMFORTABLY AND DENIES NEEDS @ THIS TIME. AM BLOOD WORK DRAWN AND SENT TO LAB. BED LOCKED IN LOW POSITION W/ BEDRAILS UPX2, ITEMS WITHIN REACH. AIRBORNE/CONTACT ISOLATION IN PLACE W/ NEGATIVE PRESSURE. CALL FARRELL WITHIN REACH. AGREES TO CALL PRN.
[2019-11-20 05:30] LABS: HEMATOCRIT 28.6 % (37.0-47.0); MEAN CELL VOLUME 84.1 fL CALC (80.0-100.0); MEAN CORPUSCULAR HGB 26.5 pG CALC (26.0-32.0); MEAN CORPUSCULAR HGB CONC 31.5 g/dL CAL (32.0-36.0); RED BLOOD COUNT 3.4 mill/uL (4.20-5.60)
[2019-11-20 05:44] LABS: CREATININE 1.5 mg/dL (0.5-1.0); POTASSIUM 3.6 mmol/l (3.5-5.1)
[2019-11-20 05:46] LABS: MAGNESIUM 2.4 mg/dL (1.6-2.3)
--- NOTE | 2019-11-20 05:49 | NUR ---
ASSOCIATE PROFESSOR OF MATHEMATICS FINDS PT WYLIE OUT W/ BALLOON DEFLATED AND INTACT. PT WASHED AND LINENS/GOWN CHANGED PER ASSOCIATE PROFESSOR OF MATHEMATICS. 18 FR. WYLIE REINSERTED USING ASEPTIC TECHNIQUE WITNESSED BY Abhay ESTRADA RN. PT TOLERATED WYLIE INSERTION. DRAINING PALE YELLOW URINE, BAG DRAINING TO GRAVITY. TUBING UNKINKED, UNOBSTRUCTED AND SECURED TO L THIGH.
--- NOTE | 2019-11-20 06:50 | NUR ---
REPORT REC FROM SHAHIDA GROVER
--- NOTE | 2019-11-20 07:16 | NUR ---
INFORMED LUC IN PHARMACY ABOUT [facility] RESULT OF 26. PER LUC THEY WILL TAKE A LOOK AT IT
--- NOTE | 2019-11-20 07:21 | NUR ---
S: DREW MONTE is a 69 F who presents with MRSA UTI. She has a history of intellectual impairment, htn, and arthritis. All medications in patient's chart were reviewed. O: VS: BP 147/68 mmHg, P 69 bpm, RR 19 breaths/min, T 97.1 F W 106.6 kg, HT 69 in, Scr 1.5 mg/dl A: Blood culture is pending. P: Patient is on Zosyn 3.375g IV q6h. Vancomycin ordered for pharmacy to dose. Pt was started on vancomycin 1g q8h 11/19/19. Trough level obtained before 4th dose on 11/20/19 @ 0000 was 26 ug/ml. Change to vancomycin 750mg IV BID. Draw vancomycin trough 30 mins prior to 4th dose on 11/21/19 @ 2030. Vancomycin goal trough is between 10-15. Pharmacy will follow and or advise on antibiotics use as needed.
--- NOTE | 2019-11-20 08:43 | NUR ---
PT SITTING IN BED WATCHING TV. A&O. NO DISTRESS NOTED. O2 VIA NC @ 2L IN PLACE. WYLIE CATHETER DRAINING VIA GRAVITY. CLEAR YELLOW URINE NOTED. PT C/O OF SLIGHT THROAT DISCOMFORT, EXPLAINED TO THE PT THAT TOP PRINTING PRESS OPERATOR WOULD BE NOTIFIED. DRESSING TO LT LEG CDI. LEG ELEVATED. NO OTHER NEEDS AT THIS TIME. ASSESSMENT COMPLETED. CALL LIGHT IN REACH. CONTINUE TO MONITOR
--- NOTE | 2019-11-20 11:50 | NUR ---
ALLIE CHAVEZ AT BEDSIDE DISCUSSING POC
--- NOTE | 2019-11-20 11:59 | NUR ---
AT BEDSIDE DISCUSSING POC
--- NOTE | 2019-11-20 12:02 | NUR ---
Called [facility], s/w nursing channel supervisor Sudheer, referred me to Ashlie who reviewed notes and could not see the patient was swabbed for COVID 19 at [facility] but was instructed to send patient to the ED for testing.
--- NOTE | 2019-11-20 12:12 | NUR ---
Called Baldomero Warner s/w Nursing Superviosr Humaira and cofirmed there was no record COVID testing during ED visit.
--- NOTE | 2019-11-20 12:18 | NUR ---
SPOKE TO SOBIA FROM [facility], PER SOBIA THE PT WAS SWABBED AND TESTED FOR COVID 19 BY THEIR HEALTH DEPT ON Thursday11/18/19 AT 1700
--- NOTE | 2019-11-20 12:18 | NUR ---
Contacted [facility] to confirm COVID testing was completed, overedge sewer to call me back.
--- NOTE | 2019-11-20 18:01 | NUR ---
PER LUZ IN ED PT HR 200 , DATA PROCESSING CONTROL CLERK ALLIE NOTIFIED. PER ALLIE PT TO HAVE A ONE TIME DOSE OF CARDIZEM IV PUSH. IV FLUIDS TO INCREASE TO 30 ML/HR. IF HR DOES NOT RETURN TO NORMAL PARAMETERS, SHE IS TO BE CALLED TO BE GIVEN THE SECOND DOSE OF CARDIZEM. IF HR IS STILL NOT WITHIN NORMAL PARAMETERS, PT TO BE TRANSFERRED TO ICU TO BE PLACED ON A DRIP. VERBALIZED UNDERSTANDING.
--- NOTE | 2019-11-20 18:47 | NUR ---
PER LUZ IN ER HR 71. PER PATTERN PAINTER CONTINUE TO MONITOR
--- NOTE | 2019-11-20 18:48 | NUR ---
HR BEFORE CARDIZEM ADMIN 87 PER LUZ IN ER. CARDIZEM HELD. PASTE MIXER NOTIFIED. PER PASTE MIXER HOLD CARDIZEM BUT MONITOR HR CLOSELY.
--- NOTE | 2019-11-20 20:00 | NUR ---
RECEIVED REPORT FROM NURSE BJ, PATIENT RESTING IN BED, HOOKED TO O2 @ 2LPM VIA NC, EVEN UNLABORED BREATHING, C/O PAIN OVER RT LEG WILL MEDICATE, HAS EMS SALINE LOCK ON RT HAND, AND IV LINE LT WRIST WITH NS @ 30CC/HR INFUSING WELL, REMAINS ON TELE SR 77 WITH PVC, WITH INDWELLING WYLIE CATHETER DRAINING CLEAR YELLOW URINE. CALL LIGHT AT REACH.
--- NOTE | 2019-11-20 20:50 | NUR ---
CALLED DR. EVANS AND NOTIFIED OF BS WITH ORDERS MADE FOR MEDIUM SLIDING SCALE, AND AIC IN AM.
--- NOTE | 2019-11-21 00:14 | NUR ---
PATIENT APPEARS TO BE SLEEPING REMAINS ON O2 @ 2LPM VIA NC WITH EVEN UYNLABORED BREATHING CALL LIGHT AT REACH.
[2019-11-21 04:18] VITALS: BP 152/67
--- NOTE | 2019-11-21 04:55 | NUR ---
V/S TAKEN RECORDER, APPEARS TO BE SLEEPING WITH EYES CLOSED, REMAINS ON O2 @ 2LPM WITH EVEN UNLABORED BREATHING CALL LIGHT AT REACH.
[2019-11-21 04:57] LABS: HEMATOCRIT 29.4 % (37.0-47.0); HEMOGLOBIN 9.2 g/dl (12.0-16.0); MEAN CORPUSCULAR HGB 26.3 pG CALC (26.0-32.0); MEAN CORPUSCULAR HGB CONC 31.3 g/dL CAL (32.0-36.0); RED BLOOD COUNT 3.5 mill/uL (4.20-5.60); RED CELL DISTRI WIDTH 14.3 % (11.5-15.5)
[2019-11-21 05:09] LABS: CREATININE 1.7 mg/dL (0.5-1.0); MAGNESIUM 2.3 mg/dL (1.6-2.3); POTASSIUM 3.5 mmol/l (3.5-5.1)
[2019-11-21 08:00] VITALS: BP 148/78
--- NOTE | 2019-11-21 09:00 | NUR ---
PT AWAKE ALERT ORINTED X1
[2019-11-21 11:39] VITALS: BP 127/87
--- NOTE | 2019-11-21 13:00 | NUR ---
PT WITH NEW IV SITE TO RH PER LEAKING TO OTHER. PT DOES RESPOND APPROPRIATELY WHEN ASKED QUESTIONS, PROBABLY LEARNING DISABILITY. RIGHT FOOT WITH CAST, NWB. NO COMPLAINT OF PAIN. PT RESTS IN THE BED WATCHING TV.
[2019-11-21 16:10] VITALS: BP 145/73
--- NOTE | 2019-11-21 16:17 | NUR ---
PER NEGATIVE COVID-19 RESULT, PT WAS MOVED TO ROOM 280. PT CONTINES BEFORE, RESTS IN THE BED IN NO DISTRESS. PT PROVIDED TRAMADOL EARLIER FOR RIGHT LEG PAIN, NOW IMPROVED.
[2019-11-21 19:00] VITALS: BP 146/79
--- NOTE | 2019-11-21 19:17 | NUR ---
RECEIVED REPORT FROM ED NURSE PATIENT RESTING IN BED, AWAKE AT THIS TIME, C/O PAIN ON RT LEG, WILL MEDICATE.
--- NOTE | 2019-11-21 21:19 | NUR ---
PATIENT PERICARE DONE, PAIN MEDICATION EFFECTIVE.
[2019-11-21 23:43] VITALS: BP 138/68
--- NOTE | 2019-11-22 00:15 | NUR ---
PATIENT SLEEPING WITH EYES CLOSED, DUE ABX GIVEN AT THIS TIME.
[2019-11-22 04:16] VITALS: BP 137/73
--- NOTE | 2019-11-22 04:42 | NUR ---
PATIENT AWAKE AT THIS TIME, NO DISCOMFORTS NOTED, REMAINS ON O2 @ 2LPM VIA NC EVEN UNLABORED BREATHING CALL LIGHT AT REACH.
[2019-11-22 05:44] LABS: CREATININE 1.8 mg/dL (0.5-1.0); POTASSIUM 3.3 mmol/l (3.5-5.1)
[2019-11-22 07:54] VITALS: BP 145/76
--- NOTE | 2019-11-22 09:00 | NUR ---
PT SEEN AWAKE, ALERT, ORIENTED TO SELF AND PLACE, KNOWN LEARMING DEFICIENCY. NO FEVER OR COUGH NOTED. LUNGS CLEAR, 2 LPM NC. DRESSING INTACT TO RLE.
[2019-11-22 10:45] VITALS: BP 142/75
[2019-11-22 14:50] VITALS: BP 139/65
--- NOTE | 2019-11-22 16:14 | NUR ---
PT AND CAREGIVER UPDATED ON PT'S STATUS, WITH WORSENING RENAL FUNCTION. PT HERSELF REMAINS AT REST IN THE BED, NO COMPLAINTS OR DISTRESS, SAYS THAT SHE IS BORED.
--- NOTE | 2019-11-22 18:37 | NUR ---
PT SEEN AT REST IN THE BED THROUGHOUT THE DAY, WILL HAVE PHYSICAL THERAPY SEE HER TOMORROW. PT ATE SUPPER, BUT SOMETHING SPICY BURNED HER MOUTH, PROVIDED MILK IN ATTEMPT TO RINSE THE SPICY OUT.
[2019-11-22 19:16] VITALS: BP 132/61
--- NOTE | 2019-11-22 19:40 | NUR ---
ASSESSMENT COMPLETED.IV SITE PATENT AND ORDERED IVF INFUSING. PT. WITH BULKY DRESSING IN PLACE TO RLE, SWELLING NOTED; UNABLE TO PALPATE RIGHT PEDAL PULSE R/T DRESSING, POPLITEAL PULSE PRESENT. PT. IS ABLE TO WIGGLE TOES WITHOUT DIFFICULTY. PT. IS INCONTINENT OF LARGE LOOSE BM AND CLEANED. PT. REPORTING PAIN TO RLE 10/10 AND MEDICATED WITH ORDERED PRN LORTAB,WILL REASSESS. ENCOURAGED TO CALL FOR ANY NEEDS. CALL LIGHT IS IN REACH.
--- NOTE | 2019-11-22 23:23 | NUR ---
RESTING IN BED WITH NO DISTRESS NOTED;DENIES NEEDS.LIGHTS TURNED OFF PER PT'S REQUEST. ENCOURAGED TO CALL FOR ANY NEEDS.
[2019-11-23] VITALS (8 sets, daily range): BP systolic 100–176; BP diastolic 51–81
--- NOTE | 2019-11-23 01:30 | NUR ---
PT. C/O RLE PAIN AND MEDICATED WITH ORDERED PRN LORTAB, WILL REASSESS. PO FLUIDS OFFERED. CALL LIGHT IS IN REACH.
--- NOTE | 2019-11-23 04:00 | NUR ---
PT.RESTING IN BED WITH EYES CLOSED. RESP.EVEN AND UNLABORED.
[2019-11-23 05:10] LABS: HEMATOCRIT 29.8 % (37.0-47.0); HEMOGLOBIN 9.4 g/dl (12.0-16.0); MEAN CELL VOLUME 84.2 fL CALC (80.0-100.0); MEAN CORPUSCULAR HGB 26.6 pG CALC (26.0-32.0); MEAN CORPUSCULAR HGB CONC 31.5 g/dL CAL (32.0-36.0); RED BLOOD COUNT 3.54 mill/uL (4.20-5.60); RED CELL DISTRI WIDTH 14.1 % (11.5-15.5)
[2019-11-23 05:26] LABS: CREATININE 1.4 mg/dL (0.5-1.0); MAGNESIUM 1.8 mg/dL (1.6-2.3); POTASSIUM 3.4 mmol/l (3.5-5.1)
--- NOTE | 2019-11-23 05:33 | NUR ---
PT. C/O MARS AND MEDICATED WITH ORDERED PRN TYLENOL. WILL REASSESS. PO FLUIDS OFFERED.
--- NOTE | 2019-11-23 06:05 | NUR ---
RECEIVED PHONE CALL PT. CONVERTED TO AFIB AND HR IN THE 120'S. PT. IS RESTING IN BED WITH NO DISTRESS NOTED. REPORTS FEELING GOOD. HR FLUCUTAING 110'S-120'S. NOTIFIED RT FOR NEED OF EKG TO CONFIRM RHYTHYM. WILL AWAIT AND THEN NOTIFY MD STOCK HANDLER.
--- NOTE | 2019-11-23 06:30 | NUR ---
[id number] OF RHYTHYM CHANGE TO AFIB AND HR FLUCTUATING FROM 100'S-120'S. ORDERS RECEIVED TO GIVE 0900 METOPROLOL. ORDERS CARRIED OUT. NOTIFIED METHOD CONSULTANT OF MED ADMINISTRATION AND TO NOTIFY THIS ANESTHESIOLOGY PHYSICIAN ASSISTANT IF HR INCREASES.
--- NOTE | 2019-11-23 07:00 | NUR ---
NOTIFIED DR. ARTEAGA OF HR NOW FLUCTUATING UP TO 150 WITH HR SUSTAINING 110'S-140. NEW ORDERS RECEIVED AND TO BE CARRIED OUT.
--- NOTE | 2019-11-23 07:00 | NUR ---
SHIFT CHANGE REPORT, PT PLEASANTLY AWAKE AND ALERT, NO C/O DISCOMFOT, IVF INFUSING, TELE MONITOR IN PLACE, WYLIE CATHETER IN PLACE WITH CLEAR YELLOW URINE, ALL NEEDS ADDRESSED, CALL FARRELL IN REACH.
--- NOTE | 2019-11-23 12:04 | NUR ---
DR TUBBS NOTIFIED VIA PHONE OF CONDITION OF CAST ON PT'S RIGHT LEG THAT GOT SOILED & SATURATED WITH FAECES, WANTS TO SEE PT TOMORROW, TO FIND OUT WHETHER WE HAVE CAM BOOTS HERE AND TO INFORM HIM IF WE DO AND TO ASK OR STAFF TO RESPLINT LEG IF POSSIBLE.
--- NOTE | 2019-11-23 12:11 | NUR ---
SPOKE TO RAQUEL IN ED WHO INFORMED ANY NURSE CAN RESPLINT AND I SHOULD TELL ANALILIA (MALTHOUSE LABORER) AND SHE WILL DECIDE WHAT TO DO, ANALILIA NOTIFIED AND IS ADDRESSING ISSUE NOW.
--- NOTE | 2019-11-23 12:51 | NUR ---
DR TUBBS ADVISED TO HAVE ED STAFF RESPLINT WITH LARGE SUGAR TONG POSTERIOR SPLINT, TRUCKING SUPERVISOR NOTIFIED.
--- NOTE | 2019-11-23 13:20 | NUR ---
NEW POSTERIOR SUGAR TONG SPLINT APPLIED TO RLE DUE TO SOILAGE PER MD ORDER. CURRENT SPLINT REMOVED DUE TO BM ON AREA. INNER NEGRITA WRAP AND DRSG TO SURGICAL SITE LEFT INTACT AREA WAS NOT AFFECTED BY BM. PT TOLERATED WELL. CAP REFILL BRISK.
--- NOTE | 2019-11-23 13:35 | NUR ---
CAP REFILL ASSESSED AT THIS TIME AND REMAINS LESS THAN 3 SECONDS.PT DENIES ANY CURRENT PAIN OR DISCOMFORTS TO RLE.
--- NOTE | 2019-11-23 20:07 | NUR ---
PT ASSESSMENT COMPLETED AND PT MEDICATED ORDERS PROVIDE. NO S/O DISTRESS NOTED. PT ASKING FOR SNACK, ICECREAM PROVIDED. CALL LIGHT IS W/IN REACH.
[2019-11-24 00:05] VITALS: BP 146/61
--- NOTE | 2019-11-24 00:13 | NUR ---
PT MEDICATED ORDERS PROVIDE W/IV ANTIBIOTIC THERAPY. PT OFFERED/PROVIDED SNACK. NO S/O DISTRESS AT THIS TIME. PT AWAKE WATCHING TV. AIDE JUST OBTAINED V/S.
[2019-11-24 04:30] VITALS: BP 156/66
[2019-11-24 04:57] LABS: HEMATOCRIT 29.7 % (37.0-47.0); HEMOGLOBIN 9.4 g/dl (12.0-16.0); MEAN CELL VOLUME 83.7 fL CALC (80.0-100.0); MEAN CORPUSCULAR HGB 26.5 pG CALC (26.0-32.0); MEAN CORPUSCULAR HGB CONC 31.6 g/dL CAL (32.0-36.0); RED BLOOD COUNT 3.55 mill/uL (4.20-5.60); RED CELL DISTRI WIDTH 14.5 % (11.5-15.5)
[2019-11-24 05:11] LABS: CREATININE 1.4 mg/dL (0.5-1.0); MAGNESIUM 1.8 mg/dL (1.6-2.3); POTASSIUM 3.7 mmol/l (3.5-5.1)
--- NOTE | 2019-11-24 05:53 | NUR ---
PT IS SLEEPING AT THIS TIME. NO S/O DISTRESS NOTED. IVF KVO AT THIS TIME.
--- NOTE | 2019-11-24 07:20 | NUR ---
CHANGE OF SHIFT REPORT RECEIVED FROM REILLY MYRICK. PT AWAKE IN ROOM. PLEASANT AND COOPERATIVE. PT DENIES ANY NEEDS. LOSS PREVENTION SPECIALIST WILL CONTINUE TO MONITOR
[2019-11-24 08:44] VITALS: BP 145/66
[2019-11-24] MEDS ORDERED: DOXYCYCL HYC100 MG PO (10:19)
[2019-11-24] MEDS ORDERED: PERCOCET 10/31 COMBO PO (10:19)
[2019-11-24 10:50] VITALS: BP 137/64
--- NOTE | 2019-11-24 12:24 | NUR ---
Discharge instructions given. Patient verbalizes understanding of same. Discharged in stable condition via Wheelchair to [facility] with [facility]ACILITY staff. All belongings sent with pt.
== END 2019-11-24 12:47 | DRG 152 ==
LOC: MS2 22:10
PROVIDERS: Nurse Practitioner Family; ADMIT Internal Medicine; ATTEND Internal Medicine
DX: J02.0 Streptococcal pharyngitis (principal); N17.0 Acute kidney failure with tubular necrosis; N39.0 Urinary tract infection, site not specified; J02.8 Acute pharyngitis due to other specified organisms; I48.0 Paroxysmal atrial fibrillation; I12.9 Hypertensive chronic kidney disease with stage 1 through stage 4 chronic kidney disease, or unspecified chronic kidney disease; N18.2 Chronic kidney disease, stage 2 (mild); E86.0 Dehydration; F79 Unspecified intellectual disabilities; M62.81 Muscle weakness (generalized); M24.671 Ankylosis, right ankle; K59.00 Constipation, unspecified; T36.8X5A Adverse effect of other systemic antibiotics, initial encounter; E87.6 Hypokalemia; B95.8 Unspecified staphylococcus as the cause of diseases classified elsewhere; B95.62 Methicillin resistant Staphylococcus aureus infection as the cause of diseases classified elsewhere; H02.102 Unspecified ectropion of right lower eyelid; H02.105 Unspecified ectropion of left lower eyelid; Z96.0 Presence of urogenital implants; Z20.828 Contact with and (suspected) exposure to other viral communicable diseases
CPT/HCPCS: J3370